=== PATIENT | female | born 1960 | race African-American/Black ===

== ENCOUNTER → 2020-02-12 11:30 | Outpatient (BNVA) | payer OTHER, SELFPAY | PROVIDERS: PCP Internal Medicine; Referring Provider Internal Medicine; Visit Provider Internal Medicine | DX: R94.31 Abnormal electrocardiogram [ECG] [EKG] (principal); E11.8 Type 2 diabetes mellitus with unspecified complications; E78.5 Hyperlipidemia, unspecified; I10 Essential (primary) hypertension; F17.200 Nicotine dependence, unspecified, uncomplicated | CPT/HCPCS: 93005; 99202 ==

== ENCOUNTER → 2020-03-02 08:32 | Outpatient (REF) | payer OTHER, SELFPAY ==
--- NOTE | 2020-03-02 08:48 | CA_ITS ---
Transthoracic Echocardiogram Patient (Last, First, Middle): Kyung Diane, Gender: Female Date of : 1960 Age: 59 Procedure Date: 03/02/2020 Procedure Type: Transthoracic Echocardiogram Location: OP Height: 165.1 cm Weight: 86.18 kg BSA: 1.94 m2 Heart Rate: bpm BP: 134 / 78 mmHg Wind Technician: Referring MD: Kj Sotomayor MD Symptoms: ABNORMAL EKG Study Quality: Good ECG Rhythm: Sinus Conclusions: - The left ventricular systolic function is normal. The visually estimated ejection fraction is between 65-70%. - No obvious valvular pathology seen on this study. - There is a small loculated pericardial effusion overlying the left ventricle. Findings Left Ventricle Normal left ventricular cavity size. There is moderately increased left ventricular wall thickness. The left ventricular systolic function is normal. The visually estimated ejection fraction is between 65-70%. There is no evidence of regional wall motion abnormalities. E/E prime ratio is between 8 and 15 consistent with indeterminate filling pressures. Evidence suggests grade I (mild) diastolic dysfunction. Right Ventricle Normal right ventricular cavity size and systolic function. Atria The left atrium is normal in size. The right atrium is normal in size. Aortic Valve There is a normal trileaflet aortic valve. There is no aortic valve stenosis. There is trace (trivial) aortic valve regurgitation. Mitral Valve The mitral valve appears normal. There is trace mitral valve regurgitation. There is no mitral valve stenosis. Pulmonic Valve The pulmonic valve was not well visualized. Tricuspid Valve Normal tricuspid valve structure. There is trace tricuspid valve regurgitation. The pulmonary artery systolic pressure is normal. Great Vessels The aortic annulus, sinuses of valsalva, asc aorta, and aortic arch are normal in size. Venous The inferior vena cava is normal in size and collapses greater than 50% with inspiration. Pericardium/Pleural There is a small loculated pericardial effusion overlying the left ventricle. There are no definitive echocardiographic findings of tamponade physiology. Prior Study Comparison Changes noted compared to prior study dated: 08/08/2006. Pericardial effusion not described then. Recommendations, Care & Conclusions No obvious valvular pathology seen on this study. Measurements 2D Linear Measurements RVIDd: 3.15 RVIDd Index: 1.62 IVSd: 1.30 0.6-0.9/0.6-1.0 cm LVIDd: 3.63 3.9-5.3/4.2-5.9 cm LVIDd Index: 1.87 2.4-3.2/2.2-3.1 cm/m2 LVIDs: 2.47 2.0-3.6 cm LVPWd: 1.66 0.7-1.1 cm Ao Root: 3.20 2.1-3.5 cm LA Diam: 3.80 2.7-3.8/3.0-4.0 cm LAIDs Index: 1.96 1.5-2.3 cm/m2 LV Mass: 247.89 67-162/88-224 g LV Mass Index: 127.78 43-95/49-115 g/m2 LVOT Diam: 2.20 3.0+(-)1.3 cm 2D Systolic Function EF 4C: 53.20 >55% EF 2C: 53.20 >55% EF BiP: 53.20 >55% Mitral Valve MV Pk E: 0.58 MV PK A: 0.65 MV Decel Time: 167.00 E/A: 0.90 E'Lateral: 4.35 E'Medial: 4.03 E/E' Med: 14.40 E/E' Lat: 13.40 Aortic Valve AoV Pk Wallace: 1.32 AoV Mn Wallace: 0.88 AoV VTI: 0.21 AoV Pk Grad: 7.00 Aov Mn Grad: 4.00 JERI Cont.VTI: 3.96 LVOT LVOT Pk Wallace: 1.11 LVOT Mn Wallace: 0.76 LVOT VTI: 0.22 LVOT Pk Grad: 5.00 LVOT Mn Grad: 3.00 LVOT Diam: 2.20 LVOT Area: 3.80 Diastolic Function MV Pk E: 0.58 MV Pk A: 0.65 E/A: 0.90 E'Medial: 4.03 E/E' Med: 14.40 E' Laterial: 4.35 E/E' Lat: 13.40 Tricuspid Valve RA Press: 3.00 Great Vessels Aorta Ao Root-2D: 3.20 2.0-3.7 cm Ao Asc: 3.30 2.1-3.4 cm Ao Arch: 3.10 Updated in Other Vendor System with Status of Final Kj Sotomayor MD electronically signed on 03/02/2020 1:22:39 PM with status of Final
--- NOTE | 2020-03-02 09:30 | CA_ITS ---
Acquisition Time: 2020-03-02 10:26:46 Total Exercise Time: 00:05:22 Test Indications: Abnormal ECG Medications: SEE CHART Protocol: JOE Max HR: 148 BPM 91% of Pred: 161 BPM Max BP: 225/060 mmHG Max Work Load: 4.0 METS Exercise stress nuclear using Joe protocol. Joe protocol modified d/t pt inability to walk the incline and the speed. Pt feels very tired, some SOB. Denies any anginal sx. Pt hypertensive toward the end of the exercise. Pt brought her medications with her and took them. BP normalized immediately after the exercise. EKG without any arrhythmias, mild upsloping ST depressions seen inferiorly and laterally. Nuclear images to follow. Test reviewed with Dr. Sotomayor. Referred By: Kj Sotomayor Overread By: Sameera Monaco
--- NOTE | 2020-03-02 09:33 | NM_ITS ---
Exercise Myocardial perfusion study Indication: Abnormal EKG to evaluate for myocardial ischemia Technique: The patient was brought in for an exercise perfusion study on 03/02/2020. Patient performed exercise as per Sj protocol and was injected 30 mCi of sestamibi was given intravenously one target HR was achieved. Images were obtained using the SPECT gamma camera interlaced with the gating device. Images were obtained in supine position. Resting perfusion study was performed on 03/03/2020. Patient was administered 30 mCi of sestamibi intravenously at rest. Images were then obtained in supine position. Images obtained with and without CT attenuation. Total DLP 97 MGY-CM. Images were processed with the software and compared side to side in short axis, horizontal long axis and vertical long axis views. Findings: The stress perfusion study showed normal uptake of radiotracer in all segments of LV myocardium on attenuated as well as non attenuated corrected images. The gated study shows normal LV systolic function with visually estimated LVEF of greater than 55%. LV cavity is normal in size. The gated study shows normal systolic wall thickening and contraction of all segments. There is no transient ischemic dilation. Resting study is suboptimal due to intense uptake interfering with inferior wall uptake. Shows diffusely reduced uptake in all segments of LV myocardium except for the lateral. Gating at rest reveals normal systolic wall motion with visually estimated ejection fraction at greater than 55%. The findings are consistent with normal myocardial perfusion. NM/NM cardiolite stress test Impression: 1. Normal myocardial perfusion 2. Gated LVEF is greater than 55%, visually. 3. Transient ischemic dilatation not present Stress EKG is borderline positive for ischemia
== END ==
LOC: HO.CARD 08:32
PROVIDERS: Visit Provider Internal Medicine
DX: R94.31 Abnormal electrocardiogram [ECG] [EKG] (principal)
CPT/HCPCS: 78452; 93017; 93306; A9500

== ENCOUNTER → 2020-03-17 12:43 | Outpatient (BNVA) | payer OTHER, SELFPAY | PROVIDERS: PCP Internal Medicine; Visit Provider Internal Medicine | DX: Z76.89 Persons encountering health services in other specified circumstances (principal) ==

== ENCOUNTER → 2020-03-25 10:22 | Outpatient (BNVA) | payer OTHER, SELFPAY | PROVIDERS: PCP Internal Medicine; Visit Provider Internal Medicine | DX: R94.31 Abnormal electrocardiogram [ECG] [EKG] (principal); R94.39 Abnormal result of other cardiovascular function study; E11.8 Type 2 diabetes mellitus with unspecified complications; F17.200 Nicotine dependence, unspecified, uncomplicated; E78.5 Hyperlipidemia, unspecified; I10 Essential (primary) hypertension | CPT/HCPCS: 99212 ==

== ENCOUNTER 2020-03-31 11:20 | Outpatient (REF) | payer OTHER, SELFPAY ==
[2020-03-31 12:09] LABS: MANUAL DIFF FLAG NO
[2020-03-31 12:15] LABS: Basophils Percent Auto 0.6 % (0-2); Eosinophils Absolute Auto 0.2 X10*3/uL (0.0-0.4); Eosinophils Percent Auto 3.3 % (0-4); Hematocrit 39.9 % (37-47); Hemoglobin 12.9 g/dl (12.0-16.0); Imm Gran Abs Auto 0.03 X10*3/uL (0.00-0.03); Imm Gran Pct Auto 0.5 % (0.0-0.4); Lymphocytes Absolute Auto 2.7 X10*3/uL (1.2-4.9); Mean Corpuscular HGB Conc 32.3 g/dl (31.0-35.0); Mean Corpuscular Volume 83.6 fL (80-98); Mean Platelet Volume 10.7 fL (9.4-12.3); Monocytes Absolute Auto 0.5 X10*3/uL (0.1-1.2); Monocytes Percent Auto 7.7 % (2-11); Neutrophils Absolute Auto 2.9 X10*3/uL (2.0-8.3); Neutrophils Percent Auto 44.9 % (45-73); Platelet Count 250 X10*3/uL (160-400); Red Blood Count 4.77 X10*6/uL (4.20-5.50); White Blood Count 6.4 X10*3/uL (4.8-10.8)
[2020-03-31 12:20] LABS: Estimated Average Glucose 212 mg/dL
[2020-03-31 12:22] LABS: Glucose Urine UA NEG (NEG); Leukocyte Esterase Urine NEG (NEG); Nitrite Urine NEG (NEG); Specific Gravity - Urine 1.025 (1.005-1.025); Urine Blood NEG (NEG); Urine Ketones NEG (NEG); Urine Protein NEG (NEG-TRACE)
[2020-03-31 12:23] LABS: Appearance Urine CLEAR; Color Urine YELLOW
[2020-03-31 12:56] LABS: Alanine Aminotransferase 105 U/L (0-31); Albumin Level 4.5 g/dL (3.5-5.0); Alkaline Phosphatase 95 U/L (39-117); Anion Gap 13 (12-20); Aspartate Amino Transferase 64 U/L (5-31); Bilirubin Total 0.4 mg/dL (0.0-1.0); Blood Urea Nitrogen 10 mg/dL (9-16); Calcium 9.9 mg/dL (8.4-10.2); Carbon Dioxide 25 mmol/L (22-29); Chloride 106 mmol/L (96-108); Cholesterol 157 mg/dL; Estimated Glomerular Filt Rate > 60; Glucose Random 137 mg/dL (60-115); HDL Cholesterol 55 mg/dL; LDL Cholesterol Calculated 75 mg/dl; Potassium 3.9 mmol/l (3.3-5.1); Sodium 140 mmol/L (135-145); Triglycerides 136 mg/dL
[2020-03-31 13:40] LABS: Thyroid Stimulating Hormone 0.67 uIU/mL (0.32-4.0)
[2020-03-31 17:25] LABS: Creatinine Urine 41.54 mg/dL; Microalbumin Urine < 5.0 mg/L
== END 2020-03-31 11:21 | disposition home or self-care (01) ==
LOC: HO.LAB 11:20
PROVIDERS: PCP Internal Medicine; Visit Provider Internal Medicine
DX: E03.8 Other specified hypothyroidism (principal); E11.9 Type 2 diabetes mellitus without complications; I10 Essential (primary) hypertension; M17.0 Bilateral primary osteoarthritis of knee; R80.8 Other proteinuria
CPT/HCPCS: 36415; 80053; 80061; 81003; 82043; 83036; 84443; 85025

== ENCOUNTER 2020-05-03 12:22 | Outpatient (REF) | payer OTHER, SELFPAY | END 2020-05-03 12:23 | disposition home or self-care (01) | LOC: HO.LAB 12:22 | PROVIDERS: Visit Provider Internal Medicine | DX: Z20.822 Contact with and (suspected) exposure to COVID-19 (principal) | CPT/HCPCS: 36415; C9803; U0003 ==

== ENCOUNTER 2020-05-10 12:18 | Outpatient (REF) | payer OTHER, SELFPAY | END 2020-05-10 12:19 | disposition home or self-care (01) | LOC: HO.LAB 12:18 | PROVIDERS: Visit Provider Internal Medicine | DX: Z20.822 Contact with and (suspected) exposure to COVID-19 (principal) | CPT/HCPCS: 36415; C9803; U0003; U0005 ==

== ENCOUNTER 2020-07-09 09:25 | Outpatient (REF) | payer OTHER, SELFPAY ==
[2020-07-09 11:11] LABS: Alanine Aminotransferase 128 U/L (0-31); Albumin Level 4.3 g/dL (3.5-5.0); Alkaline Phosphatase 168 U/L (39-117); Anion Gap 14 (12-20); Aspartate Amino Transferase 73 U/L (5-31); Bilirubin Total < 0.2 mg/dL (0.0-1.0); Blood Urea Nitrogen 13 mg/dL (9-16); Calcium 9.4 mg/dL (8.4-10.2); Carbon Dioxide 25 mmol/L (22-29); Chloride 105 mmol/L (96-108); Estimated Glomerular Filt Rate > 60; Glucose Random 188 mg/dL (60-115); Potassium 3.9 mmol/L (3.3-5.1); Sodium 140 mmol/L (135-145); Total Protein 7.7 g/dL (6.5-8.0)
[2020-07-09 11:19] LABS: Estimated Average Glucose 212 mg/dL
== END 2020-07-09 09:26 | disposition home or self-care (01) ==
LOC: HO.LAB 09:25
PROVIDERS: PCP Internal Medicine; Visit Provider Internal Medicine
DX: E03.8 Other specified hypothyroidism (principal); E11.65 Type 2 diabetes mellitus with hyperglycemia; E78.00 Pure hypercholesterolemia, unspecified; I10 Essential (primary) hypertension; R80.8 Other proteinuria
CPT/HCPCS: 36415; 80053; 83036

== ENCOUNTER 2020-09-07 12:16 | Outpatient (REF) | payer OTHER, SELFPAY ==
[2020-09-07 13:49] LABS: Estimated Average Glucose 252 mg/dL; Hemoglobin A1c % 10.4 %
[2020-09-07 13:57] LABS: Alanine Aminotransferase 148 U/L (0-31); Albumin Level 4.4 g/dL (3.5-5.0); Alkaline Phosphatase 172 U/L (39-117); Anion Gap 14 (12-20); Aspartate Amino Transferase 79 U/L (5-31); Bilirubin Total 0.4 mg/dL (0.0-1.0); Blood Urea Nitrogen 12 mg/dL (9-16); Calcium 10.4 mg/dL (8.4-10.2); Carbon Dioxide 24 mmol/L (22-29); Chloride 104 mmol/L (96-108); Estimated Glomerular Filt Rate > 60; Glucose Random 205 mg/dL (60-115); Potassium 4.1 mmol/L (3.3-5.1); Sodium 138 mmol/L (135-145); Total Protein 7.6 g/dL (6.5-8.0)
[2020-09-07 14:18] LABS: Ferritin 97 ng/mL (10-250)
[2020-09-08 12:52] LABS: Anti Nuclear Antibody Screen NEGATIVE (NEGATIVE)
[2020-09-13 12:31] LABS: Smooth Muscle Antibody <20 U (<20)
== END 2020-09-07 12:17 | disposition home or self-care (01) ==
LOC: HO.LAB 12:16
PROVIDERS: PCP Internal Medicine; Visit Provider Internal Medicine
DX: E03.9 Hypothyroidism, unspecified (principal); E11.9 Type 2 diabetes mellitus without complications; I10 Essential (primary) hypertension; R74.01 Elevation of levels of liver transaminase levels; Z72.0 Tobacco use
CPT/HCPCS: 36415; 80053; 82728; 83036; 86038; 86039; 86255

== ENCOUNTER 2020-10-12 09:44 | Outpatient (REF) | payer OTHER, SELFPAY ==
--- NOTE | ~2020-10-12 | MM_ITS ---
EXAMINATION: MM SCREENING DIGITAL BREAST TOMOSYNTHESIS, BILATERAL CLINICAL INFORMATION: Screening. Asymptomatic. The lifetime risk of breast cancer based on the Tyrer-Cuzick Model is 6.0%. COMPARISON: Mammography: 05/23/2019 and studies dating back to 04/28/2011. TECHNIQUE: Digital breast tomosynthesis is performed in both the craniocaudal and mediolateral oblique views along with computer-aided detection (CAD). Synthesized 2D images are generated from the tomosynthesis. FINDINGS: There are scattered areas of fibroglandular density (ACR BI-RADS breast composition Category b). There is a stable parenchymal pattern of the left breast with grouping of skin calcifications about the inferior medial aspect. Within the right breast, the grouping of calcifications seen deep lateral aspect appear to have increased in number by a few and spot magnification views in craniocaudal and 90-degree mediolateral views is recommended. MM/MM tomosynthesis screening BI IMPRESSION: Question increasing grouping of calcifications right breast deep lateral. ASSESSMENT: BI-RADS 0: Incomplete - Need Additional Imaging Evaluation RECOMMENDATION: Spot magnification views of the right breast in craniocaudal and 90-degree mediolateral views. Radiology staff will contact patient to obtain additional study imaging. This patient's information was entered into a reminder system with a target due date for their next mammogram.
== END 2020-10-12 09:45 | disposition home or self-care (01) ==
LOC: HO.MAMMO 09:44
PROVIDERS: PCP Internal Medicine; Visit Provider Internal Medicine
DX: Z12.31 Encounter for screening mammogram for malignant neoplasm of breast (principal)
CPT/HCPCS: 77063; 77067

== ENCOUNTER 2020-10-26 12:10 | Outpatient (REF) | payer OTHER, SELFPAY ==
--- NOTE | ~2020-10-26 | MM_ITS ---
EXAMINATION: MM DIAGNOSTIC DIGITAL MAMMOGRAPHY, RIGHT CLINICAL INFORMATION: Recall from screening for calcifications central posterior 9:00 right breast. COMPARISON: Mammography: 10/12/2020, 05/23/2019, 05/17/2018 TECHNIQUE: Digital mammography is performed in the following views: Magnification right CC x3, magnification right ML x2. FINDINGS: There are scattered areas of fibroglandular density (ACR BI-RADS breast composition Category b). There are tightly grouped similar appearing coarse calcifications at the central posterior 9:00 position. They are increased in number from prior studies. The appearance is most suggestive of fibroadenomatous change/degenerating fibroadenoma. Calcifications are probably benign and short interval follow-up is recommended in 6 months. Results are discussed with the patient at time of visit. 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 ASSESSMENT: BI-RADS 3: Probably Benign RECOMMENDATION: Diagnostic right mammography in 6 months. This patient's information was entered into a reminder system with a target due date for their next mammogram.
== END 2020-10-26 12:11 | disposition home or self-care (01) ==
LOC: HO.MAMMO 12:10
PROVIDERS: Visit Provider Internal Medicine
DX: R92.1 Mammographic calcification found on diagnostic imaging of breast (principal)
CPT/HCPCS: 77065

== ENCOUNTER 2020-12-28 12:37 | Outpatient (REF) | payer OTHER, SELFPAY ==
[2020-12-28 13:30] LABS: Estimated Average Glucose 260 mg/dL; Hemoglobin A1c % 10.7 %
[2020-12-28 13:38] LABS: Creatinine Urine 100.33 mg/dL; Microalbum/Creatinine Ratio Ur 120.6 ug/mg cr
[2020-12-28 13:43] LABS: Alanine Aminotransferase 139 U/L (0-31); Albumin Level 4.4 g/dL (3.5-5.0); Alkaline Phosphatase 165 U/L (39-117); Anion Gap 15 (12-20); Aspartate Amino Transferase 80 U/L (5-31); Bilirubin Total 0.2 mg/dL (0.0-1.0); Blood Urea Nitrogen 7 mg/dL (9-16); Calcium 9.9 mg/dL (8.4-10.2); Carbon Dioxide 23 mmol/L (22-29); Chloride 105 mmol/L (96-108); Cholesterol 126 mg/dL; Estimated Glomerular Filt Rate > 60; Glucose Random 181 mg/dL (60-115); HDL Cholesterol 46 mg/dL; LDL Cholesterol Calculated 58 mg/dl; Potassium 4.1 mmol/L (3.3-5.1); Sodium 139 mmol/L (135-145); Total Protein 7.7 g/dL (6.5-8.0); Triglycerides 113 mg/dL
[2020-12-28 13:58] LABS: Thyroid Stimulating Hormone 1.79 uIU/mL (0.32-4.0)
== END 2020-12-28 12:38 | disposition home or self-care (01) ==
LOC: HO.LAB 12:37
PROVIDERS: PCP Internal Medicine; Visit Provider Internal Medicine
DX: E11.65 Type 2 diabetes mellitus with hyperglycemia (principal); I10 Essential (primary) hypertension; Z72.0 Tobacco use
CPT/HCPCS: 36415; 80053; 80061; 82043; 83036; 84443

== ENCOUNTER → 2021-03-15 10:39 | Outpatient (BNVA) | payer OTHER, SELFPAY | PROVIDERS: PCP Internal Medicine; Visit Provider Internal Medicine | DX: R94.31 Abnormal electrocardiogram [ECG] [EKG] (principal); R94.39 Abnormal result of other cardiovascular function study; E78.5 Hyperlipidemia, unspecified; E11.8 Type 2 diabetes mellitus with unspecified complications; F17.200 Nicotine dependence, unspecified, uncomplicated; I10 Essential (primary) hypertension | CPT/HCPCS: 93005; 99212 ==

== ENCOUNTER 2021-03-25 11:46 | Outpatient (REF) | payer OTHER, SELFPAY ==
[2021-03-25 12:42] LABS: Alanine Aminotransferase 166 U/L (0-31); Albumin Level 4.3 g/dL (3.5-5.0); Alkaline Phosphatase 155 U/L (39-117); Anion Gap 14 (12-20); Aspartate Amino Transferase 107 U/L (5-31); Bilirubin Total 0.4 mg/dL (0.0-1.0); Blood Urea Nitrogen 9 mg/dL (9-16); Calcium 10.3 mg/dL (8.4-10.2); Carbon Dioxide 24 mmol/L (22-29); Chloride 106 mmol/L (96-108); Estimated Glomerular Filt Rate > 60; Glucose Random 151 mg/dL (60-115); Potassium 3.8 mmol/L (3.3-5.1); Sodium 140 mmol/L (135-145)
[2021-03-25 13:04] LABS: Thyroid Stimulating Hormone 2.03 uIU/mL (0.32-4.0)
[2021-03-25 13:05] LABS: Estimated Average Glucose 235 mg/dL; Hemoglobin A1c % 9.8 %
== END 2021-03-25 11:47 | disposition home or self-care (01) ==
LOC: HO.LAB 11:46
PROVIDERS: PCP Internal Medicine; Visit Provider Internal Medicine
DX: Z00.00 Encounter for general adult medical examination without abnormal findings (principal); E03.9 Hypothyroidism, unspecified; E78.00 Pure hypercholesterolemia, unspecified; I10 Essential (primary) hypertension; L30.4 Erythema intertrigo; Z72.0 Tobacco use
CPT/HCPCS: 36415; 80053; 83036; 84443

== ENCOUNTER 2021-04-19 15:18 | Outpatient (REF) | payer OTHER, SELFPAY ==
[2021-04-19 16:13] LABS: Binax Internal Control QC Valid; Binax Now Covid-19 Ag Negative (Negative)
== END 2021-04-19 15:19 | disposition home or self-care (01) ==
LOC: HO.LAB 15:18
PROVIDERS: Visit Provider Internal Medicine
DX: Z20.822 Contact with and (suspected) exposure to COVID-19 (principal)
CPT/HCPCS: C9803

== ENCOUNTER 2021-04-28 09:54 | Outpatient (REF) | payer OTHER, SELFPAY ==
--- NOTE | ~2021-04-28 | US_ITS ---
EXAMINATION: US ABDOMEN COMPLETE CLINICAL INFORMATION: Elevated LFTs. COMPARISON: None TECHNIQUE: Real-time imaging of the abdominal viscera. FINDINGS: PANCREAS: The pancreas is atrophic and barely visible.. ABDOMINAL AORTA: The proximal, mid, and distal segments are normal in caliber. INFERIOR VENA CAVA: Visualized portions are normal. LIVER: The liver is normal in size. The liver contour is normal. The liver is diffusely heterogenous. No focal hepatic lesion. There is no intrahepatic biliary duct dilatation seen. GALLBLADDER: Nonmobile echogenic area along the anterior gallbladder wall likely adenomyomatosis. The gallbladder is physiologically distended. Multiple mobile gallstones and echogenic gravel are present. No evidence of gallbladder wall thickening or pericholecystic fluid. COMMON BILE DUCT: Normal in caliber measuring 0.3 cm in diameter. RIGHT KIDNEY: Normal. No hydronephrosis. No renal calculi or focal parenchymal lesions. The kidney measures 12.8 cm in maximum dimension. LEFT KIDNEY: No hydronephrosis or renal calculi. The kidney measures 11.7 cm in maximum dimension. There is anechoic cyst upper/mid pole measuring 0.5 x 0.5 x 0.5 cm SPLEEN: The spleen measures 9.5 cm in maximum dimension. The spleen has slightly lobulated appearance FREE FLUID: None. US/US abdomen complete IMPRESSION: Atrophic pancreas barely visible. Gallstones and gravel without wall thickness. There is a nonmobile echogenic area in the anterior fundal wall question adenomyomatosis. Slightly lobulated spleen.
== END 2021-04-28 09:55 | disposition home or self-care (01) ==
LOC: HO.US 09:54
PROVIDERS: Visit Provider Internal Medicine
DX: R94.5 Abnormal results of liver function studies (principal)
CPT/HCPCS: 76700

== ENCOUNTER 2021-05-18 14:12 | Outpatient (REF) | payer OTHER, SELFPAY ==
--- NOTE | ~2021-05-18 | MM_ITS ---
EXAMINATION: MM DIAGNOSTIC DIGITAL BREAST TOMOSYNTHESIS, RIGHT CLINICAL INFORMATION: Short interval six-month follow-up probable benign calcifications posterior central 9:00 right breast. The lifetime risk of breast cancer based on the Tyrer-Cuzick Model is 5%. COMPARISON: Mammography: 10/26/2020, 10/12/2020 (BI-RADS 0) 05/23/2019, 05/17/2018 TECHNIQUE: Digital breast tomosynthesis is performed in both the craniocaudal and mediolateral oblique views along with computer-aided detection (CAD). Synthesized 2D images are generated from the tomosynthesis. Additional magnification right CC and magnification right ML views are obtained. FINDINGS: There are scattered areas of fibroglandular density (ACR BI-RADS breast composition Category b). Parenchymal pattern is similar to prior studies and there is no developing density or interval mass or architectural abnormality. Calcifications for follow-up right breast central posterior 9:00 position are tightly grouped and arrange in a pattern suggesting probable degenerating fibroadenoma. There may be a few adjacent satellite faint similar appearing calcifications just inferior medial on mag views. Calcifications will be reassessed again in 6 months at time of annual bilateral mammography. Results are provided to the patient at time of visit by the technologist. MM/MM tomosynthesis diagnostic RT IMPRESSION: No significant changes from prior diagnostic exam. ASSESSMENT: BI-RADS 3: Probably Benign RECOMMENDATION: Diagnostic mammography at time of annual bilateral mammography, due in 6 months. This patient's information was entered into a reminder system with a target due date for their next mammogram.
== END 2021-05-18 14:13 | disposition home or self-care (01) ==
LOC: HO.MAMMO 14:12
PROVIDERS: Visit Provider Internal Medicine
DX: R92.1 Mammographic calcification found on diagnostic imaging of breast (principal)
CPT/HCPCS: 77061; 77065

== ENCOUNTER 2021-07-01 10:32 | Outpatient (REF) | payer OTHER, SELFPAY ==
[2021-07-01 11:40] LABS: Estimated Average Glucose 258 mg/dL; Hemoglobin A1c % 10.6 %
[2021-07-01 12:07] LABS: Ferritin 162 ng/mL (10-250); Thyroid Stimulating Hormone 1.57 uIU/mL (0.32-4.0)
[2021-07-01 12:14] LABS: Alanine Aminotransferase 103 U/L (0-31); Albumin Level 4.5 g/dL (3.5-5.0); Alkaline Phosphatase 82 U/L (39-117); Anion Gap 13 (12-20); Aspartate Amino Transferase 82 U/L (5-31); Bilirubin Total 0.5 mg/dL (0.0-1.0); Blood Urea Nitrogen 11 mg/dL (9-16); Carbon Dioxide 24 mmol/L (22-29); Chloride 106 mmol/L (96-108); Cholesterol 128 mg/dL; Estimated Glomerular Filt Rate > 60; Glucose Random 155 mg/dL (60-115); HDL Cholesterol 46 mg/dL; Iron 85 mcg/dL (30-160); LDL Cholesterol Calculated 59 mg/dl; Percent Iron Saturation 20 % (15-50); Potassium 3.7 mmol/L (3.3-5.1); Sodium 139 mmol/L (135-145); Total Iron Binding Capacity 427 mcg/dL (228-428); Triglycerides 116 mg/dL; Unsaturated Iron Binding 342 ug/dL
[2021-07-04 04:14] LABS: HBS Num1 71.13 mIU/mL (0-7.99); HBc Num1 0.06 S/CO (0.00-0.79); HBsAGNum1 0.19 S/CO (0.00-0.99); Hepatitis B Core Antibody Nonreactive (Nonreactive); Hepatitis B Surface Antigen Negative (Negative); ~Hepatitis B Surface Antibody REACTIVE (Nonreactive)
[2021-07-04 04:23] LABS: ~HepC Num1 0.22 S/CO (0.00-0.79); ~Hepatitis C Antibody Nonreactive (Nonreactive)
[2021-07-04 14:52] LABS: Anti Nuclear Antibody Screen NEGATIVE (NEGATIVE)
[2021-07-06 05:14] LABS: Hepatitis A Antibody IgM 0.18 Index (0-0.79); ~Hepatitis A Antibody IgM Nonreactive (Nonreactive)
[2021-07-06 14:42] LABS: Smooth Muscle Antibody <20 U (<20)
== END 2021-07-01 10:33 | disposition home or self-care (01) ==
LOC: HO.LAB 10:32
PROVIDERS: PCP Internal Medicine; Visit Provider Internal Medicine
DX: E11.65 Type 2 diabetes mellitus with hyperglycemia (principal); E03.9 Hypothyroidism, unspecified; E78.00 Pure hypercholesterolemia, unspecified; R74.01 Elevation of levels of liver transaminase levels
CPT/HCPCS: 36415; 80053; 80061; 82728; 83036; 83540; 84443; 86015; 86038; 86039; 86704; 86706; 86709; 86803; 87340

== ENCOUNTER 2021-09-23 11:27 | Outpatient (REF) | payer OTHER, SELFPAY ==
[2021-09-23 12:27] LABS: Estimated Average Glucose 192 mg/dL; Hemoglobin A1c % 8.3 %
[2021-09-23 12:51] LABS: Alanine Aminotransferase 70 U/L (0-31); Albumin Level 4.6 g/dL (3.5-5.0); Alkaline Phosphatase 85 U/L (39-117); Anion Gap 13 (12-20); Aspartate Amino Transferase 46 U/L (5-31); Bilirubin Total 0.3 mg/dL (0.0-1.0); Blood Urea Nitrogen 14 mg/dL (9-16); Calcium 10.3 mg/dL (8.4-10.2); Carbon Dioxide 23 mmol/L (22-29); Chloride 107 mmol/L (96-108); Estimated Glomerular Filt Rate 54; Glucose Random 87 mg/dL (60-115); Potassium 3.9 mmol/L (3.3-5.1); Sodium 139 mmol/L (135-145); Total Protein 8.2 g/dL (6.5-8.0)
== END 2021-09-23 11:28 | disposition home or self-care (01) ==
LOC: HO.LAB 11:27
PROVIDERS: PCP Internal Medicine; Visit Provider Internal Medicine
DX: E03.8 Other specified hypothyroidism (principal); E11.65 Type 2 diabetes mellitus with hyperglycemia; R74.01 Elevation of levels of liver transaminase levels; Z72.0 Tobacco use
CPT/HCPCS: 36415; 80053; 83036

== ENCOUNTER 2021-11-16 11:57 | Outpatient (REF) | payer OTHER, SELFPAY ==
--- NOTE | ~2021-11-16 | MM_ITS ---
EXAMINATION: MM DIAGNOSTIC DIGITAL BREAST TOMOSYNTHESIS, BILATERAL CLINICAL INFORMATION: Due for yearly. Also follow-up probable benign tightly grouped relatively coarse calcifications posterior central 9:00 right breast. The lifetime risk of breast cancer based on the Tyrer-Cuzick Model is 5%. COMPARISON: Mammography: 05/18/2021, 10/26/2020, 10/12/2020 (BI-RADS 0), 05/23/2019, 05/17/2018 TECHNIQUE: Digital breast tomosynthesis is performed in both the craniocaudal and mediolateral oblique views along with computer-aided detection (CAD). Synthesized 2D images are generated from the tomosynthesis. Additional views are obtained: Exaggerated right CC, magnification right CC x4, magnification right ML x3. FINDINGS: There are scattered areas of fibroglandular density (ACR BI-RADS breast composition Category b). The parenchymal pattern is similar to prior studies and there is no interval mass or architectural abnormality or developing density. The axilla and skin contours are unremarkable. Left breast has grouped benign dermal calcifications posterior 7:30 position similar to prior studies. Right breast calcifications for follow-up posterior central 9:00 position are stable from prior diagnostic exam. The calcifications are tightly grouped and relatively coarse and likely fibroadenomatous change. There are a few adjacent satellite calcifications which show no suspicious change from prior study. These remain probably benign. There are loosely grouped calcifications posterior upper inner right breast. Additional magnification views show the calcifications are over 10 in number and vary in size and attenuation. The calcifications are not as well imaged on the CC view, although are confirmed on standard CC tomography sections. This represents change from prior study. Results are discussed with the patient. The calcifications for follow-up posterior central 9:00 position are probably benign and may continue to be followed. Stereotactic sampling for the loosely grouped calcifications posterior upper inner right breast was discussed. Patient is in agreement with tissue sampling. MM/MM tomosynthesis diagnostic BI IMPRESSION: Right: -New loosely grouped calcifications posterior upper inner quadrant. -The probable benign calcifications for follow-up surveillance are without significant change. Left: -No mammographic evidence of malignancy. ASSESSMENT: BI-RADS 4: Suspicious (subcategory 4A: Low suspicion for malignancy) RECOMMENDATION: Stereotactic sampling calcifications posterior upper inner right breast. This patient's information was entered into a reminder system with a target due date for their next mammogram.
== END 2021-11-16 11:58 | disposition home or self-care (01) ==
LOC: HO.MAMMO 11:57
PROVIDERS: PCP Internal Medicine; Visit Provider Internal Medicine
DX: R92.1 Mammographic calcification found on diagnostic imaging of breast (principal)
CPT/HCPCS: 77062; 77066

== ENCOUNTER 2021-11-22 09:04 | Outpatient (REF) | payer OTHER, SELFPAY ==
--- NOTE | ~2021-11-22 | MM_ITS ---
EXAMINATION: STEREOTACTIC TOMOSYNTHESIS-GUIDED VACUUM-ASSISTED BREAST BIOPSY, RIGHT SPECIMEN RADIOGRAPH, RIGHT POST PROCEDURE DIGITAL MAMMOGRAM, RIGHT CLINICAL INFORMATION: Loosely grouped calcifications posterior upper inner right breast representing change from prior studies. Other calcifications under surveillance benign appearing and stable.. COMPARISON: Mammography 11/16/2021, 05/18/2021. TECHNIQUE/PROCEDURE: Informed consent was obtained from the patient after discussion of the benefits, risks, and alternatives to biopsy today. Patient appeared to understand. Gave opportunity for questions. Patient signed consent form. BIOPSY TABLE: [employer] Affirm Prone Biopsy System. LESION: Loosely grouped calcifications posterior upper inner right breast. LOCAL ANESTHESIA: 10 mL carbonated 1% lidocaine; 10 mL 1% lidocaine with epinephrine. DERMATOTOMY: Single skin joshua dermatotomy performed. NEEDLE: [employer] 9-gauge vacuum assisted core biopsy device. APPROACH: Medial lateral. TARGETING: Combination of digital breast tomosynthesis and stereotactic digital mammography used for targeting. CORES: 7. CLIP: [employer] Cylinder-shaped marker. SPECIMEN RADIOGRAPH: Specimen radiograph is taken in separate room using digital mammography. The index calcifications are in the excised cores. There are at least 10 calcifications in the cores. POST PROCEDURE UNILATERAL DIGITAL MAMMOGRAM: The post biopsy mammogram is performed in separate room using separate digital mammography equipment from the biopsy procedure. CC and LM views are obtained. There are scattered areas of fibroglandular density (breast composition category: b). The clip marker is in position. The calcifications are markedly decreased at the biopsy site. No gross hematoma. The patient tolerated the procedure well. No immediate complications. Home instructions reviewed with the patient. Final pathology results are pending. MM/MM stereotactic biopsy RT IMPRESSION: 1. Digital tomosynthesis-guided core biopsy right breast with clip placement. 2. Specimen radiograph taken and post procedure mammogram. There is satisfactory positioning of the biopsy clip. 3. Final pathology results pending. An addendum report will be issued.
[2021-11-22] MEDS: Lidocaine HCl 1 % 20 ML VIAL 9 ML SUBCUT (11:10)
[2021-11-22] MEDS: Sodium Bicarbonate 8.4% 50 MEQ/50 ML VIAL SUBCUT (11:13)
== END 2021-11-22 09:05 | disposition home or self-care (01) ==
LOC: HO.MAMMO 09:04
PROVIDERS: PCP Internal Medicine; Visit Provider Surgery
DX: R92.8 Other abnormal and inconclusive findings on diagnostic imaging of breast (principal)
CPT/HCPCS: 19081; 88305; 99202

== ENCOUNTER → 2021-11-25 08:57 | Outpatient (BNVA) | payer OTHER, SELFPAY | PROVIDERS: Visit Provider Surgery | DX: R92.0 Mammographic microcalcification found on diagnostic imaging of breast (principal); Z71.2 Person consulting for explanation of examination or test findings; Z79.899 Other long term (current) drug therapy | CPT/HCPCS: 99212 ==

== ENCOUNTER 2021-12-21 11:07 | Outpatient (REF) | payer OTHER, SELFPAY ==
[2021-12-21 11:25] LABS: MANUAL DIFF FLAG NO
[2021-12-21 11:58] LABS: Basophils Percent Auto 0.5 % (0-2); Eosinophils Absolute Auto 0.2 X10*3/uL (0.0-0.4); Eosinophils Percent Auto 2.8 % (0-4); Hematocrit 45.4 % (37.0-47.0); Hemoglobin 14.4 g/dl (12.0-16.0); Imm Gran Abs Auto 0.03 X10*3/uL (0.00-0.03); Imm Gran Pct Auto 0.4 % (0.0-0.4); Lymphocytes Absolute Auto 3.1 X10*3/uL (1.2-4.9); Lymphocytes Percent Auto 39.6 % (20-40); Mean Corpuscular HGB Conc 31.7 g/dl (31.0-35.0); Mean Corpuscular Hemoglobin 26.4 pg (27.0-33.0); Mean Corpuscular Volume 83.2 fL (80.0-98.0); Mean Platelet Volume 10.4 fL (9.4-12.3); Monocytes Absolute Auto 0.5 X10*3/uL (0.1-1.2); Monocytes Percent Auto 6.7 % (2-11); Neutrophils Absolute Auto 3.9 x10*3/uL (2.0-8.3); Platelet Count 254 X10*3/uL (160-400); Red Blood Count 5.46 X10*6/uL (4.20-5.50); Red Cell Distribution Width 15.1 % (11.0-16.0); White Blood Count 7.9 X10*3/uL (4.8-10.8)
[2021-12-21 12:03] LABS: Estimated Average Glucose 169 mg/dL; Hemoglobin A1c % 7.5 %
[2021-12-21 12:29] LABS: Alanine Aminotransferase 101 U/L (0-31); Albumin Level 4.4 g/dL (3.5-5.0); Alkaline Phosphatase 153 U/L (39-117); Anion Gap 15 (12-20); Aspartate Amino Transferase 59 U/L (5-31); Bilirubin Total 0.4 mg/dL (0.0-1.0); Blood Urea Nitrogen 12 mg/dL (9-16); Calcium 10.4 mg/dL (8.4-10.2); Carbon Dioxide 25 mmol/L (22-29); Chloride 105 mmol/L (96-108); Cholesterol 139 mg/dL; Estimated Glomerular Filt Rate > 60; Glucose Random 91 mg/dL (60-115); HDL Cholesterol 45 mg/dL; LDL Cholesterol Calculated 65 mg/dl; Potassium 4.1 mmol/L (3.3-5.1); Sodium 141 mmol/L (135-145); Total Protein 7.9 g/dL (6.5-8.0); Triglycerides 148 mg/dL
[2021-12-21 12:46] LABS: Thyroid Stimulating Hormone 1.24 uIU/mL (0.32-4.0)
[2021-12-21 12:46] LABS: Creatinine Urine 105.91 mg/dL; Microalbum/Creatinine Ratio Ur 37.7 ug/mg cr
[2021-12-21 12:54] LABS: Vitamin B12 325 pg/mL (200-900)
== END 2021-12-21 11:08 | disposition home or self-care (01) ==
LOC: HO.LAB 11:07
PROVIDERS: PCP Internal Medicine; Visit Provider Internal Medicine
DX: E03.8 Other specified hypothyroidism (principal); E11.65 Type 2 diabetes mellitus with hyperglycemia; R80.8 Other proteinuria; M22.2X2 Patellofemoral disorders, left knee
CPT/HCPCS: 36415; 80053; 80061; 82043; 82607; 83036; 84443; 85025

== ENCOUNTER 2022-02-06 09:01 | Outpatient (REF) | payer OTHER, SELFPAY ==
[2022-02-06 09:47] LABS: Estimated Average Glucose 174 mg/dL; Hemoglobin A1c % 7.7 %
[2022-02-06 10:07] LABS: Cholesterol 143 mg/dL; HDL Cholesterol 44 mg/dL; LDL Cholesterol Calculated 50 mg/dl; Triglycerides 247 mg/dL
== END 2022-02-06 09:02 | disposition home or self-care (01) ==
LOC: HO.LAB 09:01
PROVIDERS: PCP Internal Medicine; Visit Provider Registered Nurse
DX: Z51.81 Encounter for therapeutic drug level monitoring (principal)
CPT/HCPCS: 36415; 80061; 83036

== ENCOUNTER → 2022-03-09 11:04 | Outpatient (BNVA) | payer OTHER, SELFPAY | PROVIDERS: PCP Internal Medicine; Referring Provider Internal Medicine; Visit Provider Internal Medicine | DX: R94.31 Abnormal electrocardiogram [ECG] [EKG] (principal); R94.39 Abnormal result of other cardiovascular function study; E11.8 Type 2 diabetes mellitus with unspecified complications; E78.5 Hyperlipidemia, unspecified; I10 Essential (primary) hypertension; F17.210 Nicotine dependence, cigarettes, uncomplicated | CPT/HCPCS: 93005; 99212 ==

== ENCOUNTER 2022-04-13 08:56 | Outpatient (REF) | payer OTHER, SELFPAY ==
[2022-04-13 10:24] LABS: Estimated Average Glucose 157 mg/dL; Hemoglobin A1c % 7.1 %
[2022-04-13 10:43] LABS: Alanine Aminotransferase 105 U/L (0-31); Albumin Level 4.5 g/dL (3.5-5.0); Alkaline Phosphatase 162 U/L (39-117); Anion Gap 15 (12-20); Aspartate Amino Transferase 70 U/L (5-31); Bilirubin Total 0.4 mg/dL (0.0-1.0); Blood Urea Nitrogen 11 mg/dL (9-16); Calcium 10.3 mg/dL (8.4-10.2); Carbon Dioxide 24 mmol/L (22-29); Chloride 107 mmol/L (96-108); Estimated Glomerular Filt Rate > 60; Glucose Random 69 mg/dL (60-115); Sodium 142 mmol/L (135-145); Total Protein 8.1 g/dL (6.5-8.0)
== END 2022-04-13 08:57 | disposition home or self-care (01) ==
LOC: HO.LAB 08:56
PROVIDERS: PCP Internal Medicine; Visit Provider Internal Medicine
DX: Z00.00 Encounter for general adult medical examination without abnormal findings (principal); E03.8 Other specified hypothyroidism; E11.65 Type 2 diabetes mellitus with hyperglycemia; R80.8 Other proteinuria; Z72.0 Tobacco use
CPT/HCPCS: 36415; 80053; 83036

== ENCOUNTER 2022-05-15 09:53 | Outpatient (REF) | payer OTHER, SELFPAY ==
[2022-05-15 11:15] LABS: Anion Gap 13 (12-20); Blood Urea Nitrogen 13 mg/dL (9-16); Calcium 9.8 mg/dL (8.4-10.2); Carbon Dioxide 24 mmol/L (22-29); Chloride 108 mmol/L (96-108); Estimated Glomerular Filt Rate > 60; Glucose Random 82 mg/dL (60-115); Potassium 3.9 mmol/L (3.3-5.1); Sodium 141 mmol/L (135-145)
== END 2022-05-15 09:54 | disposition home or self-care (01) ==
LOC: HO.LAB 09:53
PROVIDERS: PCP Internal Medicine; Visit Provider Internal Medicine
DX: I10 Essential (primary) hypertension (principal); R94.39 Abnormal result of other cardiovascular function study; E11.8 Type 2 diabetes mellitus with unspecified complications
CPT/HCPCS: 36415; 80048

== ENCOUNTER 2022-05-19 09:56 | Outpatient (REF) | payer OTHER, SELFPAY ==
--- NOTE | ~2022-05-19 | US_ITS ---
EXAMINATION: US COMPLETE ABDOMEN WITH LIVER ELASTOGRAPHY CLINICAL INFORMATION: Abnormal liver function tests COMPARISON: Previous abdominal ultrasound April 2021 TECHNIQUE: Real-time imaging of the abdominal viscera. Noninvasive ultrasound liver fibrosis assessment is performed using [employer] point quantification shear wave elastography (2D-SWE) with a C5-2 MHz transducer. Multiple elastography samples are obtained. FINDINGS: PANCREAS: The visualized pancreatic head and body are normal in appearance. The remainder of the pancreas is obscured from visualization by the overlying bowel gas. ABDOMINAL AORTA: The proximal abdominal aorta is normal in caliber. The mid and distal abdominal aorta is not well visualized due to bowel gas. INFERIOR VENA CAVA: Visualized portions are normal. LIVER: Liver echotexture is increased. The liver is normal in contour. No focal liver lesion. No biliary duct dilatation. The right lobe measures 16 cm in length. The left lobe measures 15 cm in length. Portal flow is normal/hepatopedal Shear wave liver elastography median stiffness is 1.8 m/s (reference: normal median stiffness is 1.3 m/s or less). IQR/median stiffness to assess sampling precision is 0.07 (reference: good quality data set is IQR/median stiffness of 0.15 or less). GALLBLADDER: There is adenomyomatosis of gallbladder wall. No gallstones. The gallbladder is normal in size. COMMON BILE DUCT: Normal in caliber measuring 0.5 cm in diameter. RIGHT KIDNEY: Normal. No hydronephrosis. No renal calculi or focal parenchymal lesions. The kidney measures 13 cm in maximum dimension. LEFT KIDNEY: Simple cyst in the midpole measuring 5 mm. No hydronephrosis. No renal calculi . The kidney measures 11.3 cm in maximum dimension. SPLEEN: Normal. The spleen measures 9.3 cm in maximum dimension. FREE FLUID: None. US/US abdomen comp w elastography IMPRESSION: 1. Impression: Echogenic liver probably representing fatty infiltration. Adenomyomatosis of the gallbladder wall. Small right renal cyst. Limited visualization of the pancreas and aorta. 2. Liver elastography: Slightly elevated liver stiffness. Adequate liver sampling. REFERENCE: Society of Radiologists in Ultrasound Liver Stiffness Thresholds (2020): LIVER STIFFNESS THRESHOLDS: *Liver Stiffness equal or less than 1.3 m/s: High probability of being normal. *Liver Stiffness less than 1.7 m/s: In the absence of other known clinical signs, rules out compensated advanced chronic liver disease. *Liver Stiffness 1.7-2.1 m/s: Suggestive of compensated advanced chronic liver disease but need further test for confirmation. *Liver Stiffness over 2.1 m/s: Rules in compensated advanced chronic liver disease. *Liver Stiffness over 2.4 m/s: Suggestive of clinically significant portal hypertension. QUALITY OF DATA SET: *IQR/Median value equal or less than 0.15 implies a quality data set. *IQR/Median value over 0.15 implies a poor quality data set. SIGNIFICANT CHANGE FROM PRIOR EXAM: Significant change if liver stiffness measurement is 10% or greater from prior exam. OTHER CONSIDERATIONS: The stage of liver fibrosis may be overestimated in the setting of acute hepatitis, liver inflammation, elevated liver function tests, hepatic vascular congestion, obstructive cholestasis, non-fasting state, and infiltrative diseases such as amyloidosis and lymphoma. In some patients with NAFLD, the liver stiffness thresholds for compensated advanced chronic liver disease may be lower. In causes other than viral hepatitis and NAFLD, liver stiffness thresholds are not well established.
== END 2022-05-19 09:57 | disposition home or self-care (01) ==
LOC: HO.US 09:56
PROVIDERS: PCP Internal Medicine; Visit Provider Internal Medicine
DX: R74.01 Elevation of levels of liver transaminase levels (principal)
CPT/HCPCS: 76705; 76981

== ENCOUNTER → 2022-06-07 09:58 | Outpatient (BNVA) | payer OTHER, SELFPAY | PROVIDERS: PCP Internal Medicine; Referring Provider Internal Medicine; Visit Provider Internal Medicine | DX: R94.31 Abnormal electrocardiogram [ECG] [EKG] (principal); R94.39 Abnormal result of other cardiovascular function study; E11.8 Type 2 diabetes mellitus with unspecified complications; I10 Essential (primary) hypertension; E78.5 Hyperlipidemia, unspecified; F17.210 Nicotine dependence, cigarettes, uncomplicated | CPT/HCPCS: 99212 ==

== ENCOUNTER 2022-06-15 11:01 | Outpatient (REF) | payer OTHER, SELFPAY ==
--- NOTE | ~2022-06-15 | MM_ITS ---
EXAMINATION: MM DIAGNOSTIC DIGITAL BREAST TOMOSYNTHESIS, RIGHT CLINICAL INFORMATION: Benign right stereotactic biopsy posterior upper inner right breast 11/22/2021 (benign breast tissue with stromal fibrosis and calcifications. No atypia or malignancy. The biopsy has some features of a hyalinized fibroadenoma associated with the calcifications). Also benign-appearing group of calcifications posterior central right breast just lateral to midline, not previously sampled. The lifetime risk of breast cancer based on the Tyrer-Cuzick Model is 5%. COMPARISON: Mammography: 11/22/2021, 11/16/2021, 05/18/2021, 10/26/2020, 10/12/2020 (BI-RADS 0, group not sampled). TECHNIQUE: Digital breast tomosynthesis is performed in both the craniocaudal and mediolateral oblique views along with computer-aided detection (CAD). Synthesized 2D images are generated from the tomosynthesis. Additional magnification right CC and magnification FINDINGS: There are scattered areas of fibroglandular density (ACR BI-RADS breast composition Category b). Parenchymal pattern is similar to prior studies. There is biopsy clip marker posterior upper inner right breast. Some peripheral remaining calcifications are stable from prior exam. There are tightly grouped clearly benign calcifications posterior central slightly outer right breast with a few incidental punctate satellite calcifications which are stable. Right breast calcifications will be reassessed again at next bilateral annual mammography, due in 6 months to conclude long-term surveillance. Preliminary results are provided to the patient at time of visit by the technologist. MM/MM tomosynthesis diagnostic RT IMPRESSION: No significant changes from prior diagnostic exams. ASSESSMENT: BI-RADS 3: Probably Benign RECOMMENDATION: Magnification views right breast at time of annual bilateral mammography, due in 6 months, to conclude long-term surveillance. This patient's information was entered into a reminder system with a target due date for their next mammogram.
== END 2022-06-15 11:02 | disposition home or self-care (01) ==
LOC: HO.MAMMO 11:01
PROVIDERS: PCP Internal Medicine; Visit Provider Internal Medicine
DX: R92.1 Mammographic calcification found on diagnostic imaging of breast (principal)
CPT/HCPCS: 77061; 77065

== ENCOUNTER 2022-06-26 08:48 | Outpatient (REF) | payer OTHER, SELFPAY ==
[2022-06-26 09:32] LABS: Estimated Average Glucose 166 mg/dL; Hemoglobin A1c % 7.4 %
[2022-06-26 10:10] LABS: Anion Gap 14 (12-20)
[2022-06-26 10:40] LABS: Alanine Aminotransferase 112 U/L (0-31); Albumin Level 4.2 g/dL (3.5-5.0); Alkaline Phosphatase 138 U/L (39-117); Aspartate Amino Transferase 66 U/L (5-31); Bilirubin Total 0.3 mg/dL (0.0-1.0); Carbon Dioxide 24 mmol/L (22-29); Chloride 106 mmol/L (96-108); Estimated Glomerular Filt Rate > 60; Glucose Random 114 mg/dL (60-115); Potassium 3.9 mmol/L (3.3-5.1); Sodium 140 mmol/L (135-145); Thyroid Stimulating Hormone 0.75 uIU/mL (0.32-4.0); Total Protein 7.7 g/dL (6.5-8.0)
[2022-06-26 12:02] LABS: Blood Urea Nitrogen 12 mg/dL (9-16)
== END 2022-06-26 08:49 | disposition home or self-care (01) ==
LOC: HO.LAB 08:48
PROVIDERS: PCP Internal Medicine; Visit Provider Internal Medicine
DX: E03.8 Other specified hypothyroidism (principal); E11.9 Type 2 diabetes mellitus without complications; F20.89 Other schizophrenia; R74.01 Elevation of levels of liver transaminase levels; Z72.0 Tobacco use
CPT/HCPCS: 36415; 80053; 83036; 84443

== ENCOUNTER → 2022-07-03 08:54 | Outpatient (BNVA) | payer OTHER, SELFPAY | PROVIDERS: PCP Internal Medicine; Visit Provider Physician Assistant | DX: A63.0 Anogenital (venereal) warts (principal) | CPT/HCPCS: 99202 ==

== ENCOUNTER → 2022-07-13 10:55 | Outpatient (BNVA) | payer OTHER, SELFPAY | PROVIDERS: PCP Internal Medicine; Referring Provider Physician Assistant; Visit Provider Surgery | DX: A63.0 Anogenital (venereal) warts (principal) | CPT/HCPCS: 99202 ==

== ENCOUNTER → 2022-08-31 08:59 | Outpatient (BNVA) | payer OTHER, SELFPAY | PROVIDERS: PCP Internal Medicine; Visit Provider Physician Assistant | DX: A63.0 Anogenital (venereal) warts (principal) | CPT/HCPCS: 99212 ==

== ENCOUNTER 2022-09-26 08:54 | Outpatient (REF) | payer OTHER, SELFPAY ==
[2022-09-26 09:32] LABS: Estimated Average Glucose 160 mg/dL; Hemoglobin A1c % 7.2 %
[2022-09-26 10:00] LABS: Alanine Aminotransferase 88 U/L (0-31); Albumin Level 4.3 g/dL (3.5-5.0); Alkaline Phosphatase 143 U/L (39-117); Anion Gap 18 (12-20); Aspartate Amino Transferase 60 U/L (5-31); Bilirubin Total 0.4 mg/dL (0.0-1.0); Blood Urea Nitrogen 12 mg/dL (9-16); Calcium 10.9 mg/dL (8.4-10.2); Carbon Dioxide 23 mmol/L (22-29); Chloride 105 mmol/L (96-108); Estimated Glomerular Filt Rate > 60; Glucose Random 96 mg/dL (60-115); Potassium 3.8 mmol/L (3.3-5.1); Sodium 142 mmol/L (135-145); Total Protein 8.4 g/dL (6.5-8.0)
== END 2022-09-26 08:55 | disposition home or self-care (01) ==
LOC: HO.LAB 08:54
PROVIDERS: PCP Internal Medicine; Visit Provider Internal Medicine
DX: E03.8 Other specified hypothyroidism (principal); E11.9 Type 2 diabetes mellitus without complications; I10 Essential (primary) hypertension; R21 Rash and other nonspecific skin eruption; R74.01 Elevation of levels of liver transaminase levels
CPT/HCPCS: 36415; 80053; 83036; 84443

== ENCOUNTER 2022-12-20 10:54 | Outpatient (REF) | payer OTHER, SELFPAY ==
--- NOTE | ~2022-12-20 | MM_ITS ---
EXAMINATION: MM DIAGNOSTIC DIGITAL BREAST TOMOSYNTHESIS, BILATERAL CLINICAL INFORMATION: Follow-up right breast calcifications (to establish two-year stability); patient also due for bilateral screening. COMPARISON: Mammography: 06/15/2022, 11/22/2021, 11/16/2021, 05/18/2021, and dating back to 2017. TECHNIQUE: Digital breast tomosynthesis is performed in both the craniocaudal and mediolateral oblique views along with computer-aided detection (CAD). Synthesized 2D images are generated from the tomosynthesis. In addition, 2-D right spot compression CC and ML views were performed. FINDINGS: There are scattered areas of fibroglandular density (ACR BI-RADS breast composition Category b). Calcifications in the approximate 8:00 position of the right breast, posterior one third, remaining coarse in morphology, and grossly stable in number, without suspicious features. 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 No further follow-up recommended. There is a post benign biopsy clip in the upper medial right breast, posterior one third. There are dermal calcifications in the medial left breast. There are no suspicious masses, suspicious grouped calcifications, or areas of architectural distortion in either breast. The parenchymal pattern is stable from prior exams. There are no skin changes. MM/MM tomosynthesis diagnostic BI IMPRESSION: There are no findings suspicious for malignancy in either breast. Calcifications in the approximate 8:00 position posterior right breast remain stable over 2 years and are benign. No further follow-up recommended. Recommend the patient resume annual routine screening. ASSESSMENT: BI-RADS BI-RADS 2 - Benign Findings RECOMMENDATION: 1 year F/U Results were provided to the patient at time of visit by the technologist. This patient's information was entered into a reminder system with a target due date for their next mammogram.
== END 2022-12-20 10:55 | disposition home or self-care (01) ==
LOC: HO.MAMMO 10:54
PROVIDERS: PCP Internal Medicine; Visit Provider Internal Medicine
DX: R92.1 Mammographic calcification found on diagnostic imaging of breast (principal)
CPT/HCPCS: 77062; 77066

== ENCOUNTER → 2022-12-20 11:00 | Outpatient (BNV) | payer OTHER, SELFPAY | PROVIDERS: PCP Internal Medicine; Visit Provider Radiology Diagnostic Radiology | DX: R92.8 Other abnormal and inconclusive findings on diagnostic imaging of breast (principal) | CPT/HCPCS: 77062; 77066 ==

== ENCOUNTER 2022-12-25 09:16 | Outpatient (REF) | payer OTHER, SELFPAY ==
[2022-12-25 09:34] LABS: MANUAL DIFF FLAG NO
[2022-12-25 10:02] LABS: Basophils Percent Auto 0.6 % (0-2); Eosinophils Absolute Auto 0.3 X10*3/uL (0.0-0.4); Eosinophils Percent Auto 3.7 % (0-4); Hematocrit 46.4 % (37.0-47.0); Imm Gran Abs Auto 0.03 X10*3/uL (0.00-0.03); Imm Gran Pct Auto 0.4 % (0.0-0.4); Lymphocytes Absolute Auto 3.2 X10*3/uL (1.2-4.9); Lymphocytes Percent Auto 47.1 % (20-40); Mean Corpuscular HGB Conc 32.3 g/dl (31.0-35.0); Mean Corpuscular Hemoglobin 26.9 pg (27.0-33.0); Mean Corpuscular Volume 83.2 fL (80.0-98.0); Mean Platelet Volume 10.1 fL (9.4-12.3); Monocytes Absolute Auto 0.6 X10*3/uL (0.1-1.2); Monocytes Percent Auto 8.4 % (2-11); Neutrophils Absolute Auto 2.7 x10*3/uL (2.0-8.3); Neutrophils Percent Auto 39.8 % (45-73); Platelet Count 243 X10*3/uL (160-400); Red Blood Count 5.58 X10*6/uL (4.20-5.50); Red Cell Distribution Width 15.4 % (11.0-16.0); White Blood Count 6.8 X10*3/uL (4.8-10.8)
[2022-12-25 10:17] LABS: Estimated Average Glucose 171 mg/dL; Hemoglobin A1c % 7.6 % (<6.0)
[2022-12-25 10:34] LABS: Creatinine Urine 136.63 mg/dL; Microalbum/Creatinine Ratio Ur 70.9 ug/mg cr (<30)
[2022-12-25 10:42] LABS: Alanine Aminotransferase 106 U/L (0-31); Albumin Level 4.3 g/dL (3.5-5.0); Alkaline Phosphatase 134 U/L (39-117); Anion Gap 13 (12-20); Aspartate Amino Transferase 65 U/L (5-31); Bilirubin Total 0.2 mg/dL (0.0-1.0); Blood Urea Nitrogen 10 mg/dL (9-16); Calcium 10.2 mg/dL (8.4-10.2); Carbon Dioxide 22 mmol/L (22-29); Chloride 108 mmol/L (96-108); Cholesterol 135 mg/dL (<200); Estimated Glomerular Filt Rate > 60; Glucose Random 108 mg/dL (60-115); HDL Cholesterol 48 mg/dL (>40); LDL Cholesterol Calculated 62 mg/dL (<100); Potassium 3.8 mmol/L (3.3-5.1); Sodium 139 mmol/L (135-145); Total Protein 7.9 g/dL (6.5-8.0); Triglycerides 125 mg/dL (<150)
[2022-12-25 11:02] LABS: Vitamin B12 414 pg/mL (200-900)
== END 2022-12-25 09:17 | disposition home or self-care (01) ==
LOC: HO.LAB 09:16
PROVIDERS: PCP Internal Medicine; Visit Provider Internal Medicine
DX: E11.9 Type 2 diabetes mellitus without complications (principal); I10 Essential (primary) hypertension; R74.01 Elevation of levels of liver transaminase levels; Z72.0 Tobacco use
CPT/HCPCS: 36415; 80053; 80061; 82043; 82570; 82607; 83036; 85025

== ENCOUNTER 2023-01-09 08:55 | Day surgery (SDC) | payer OTHER, SELFPAY ==
[2023-01-05 10:23] VITALS: BMI 32.3
[2023-01-05 12:21] VITALS: BMI 31.9
--- NOTE | 2023-01-08 09:31 | HO.ANESPROP2 ---
Documented by User: Onelia Mock NP 01/08/23 09:34 HPI - Anesthesia Eval Consult details Narrative: 62yo F for Excision/ Fulguration of Perianal Lesions PMFSH Active Problems Active Problems: All Active Problems (Updated 08/31/22 @ 09:28 by Kelly Burch PA-C) Abnormal mammogram of right breast (Acute) Abnormal stress test (Acute) Abnormal EKG (Acute) Anal condylomata (Acute) Essential hypertension (Acute) Hyperlipidemia, unspecified (Acute) Smoking (Acute) Type 2 diabetes mellitus with unspecified complications (Acute) Past Medical History Medical History History of verrucae (wart) excision Anal condylomata Elevated LFTs Hypothyroid Depression Smoking Hyperlipidemia, unspecified Essential hypertension Type 2 diabetes mellitus with unspecified complications Family History Family History Father No problems noted. Mother Stroke Surgical History Surgical History No pertinent past surgical history Social History Social History Household Members Other:: Lives alone Are you a primary pharmacy customer care specialist to a significant other at home: No Do you presently have visiting nurse or other home services: No Alcohol intake: never Patient Tobacco Use Status: Current everyday Tobacco user Tobacco use type: Cigarette Cigarettes Per Day: 7 Years Smoked: 30 Smoked in Last 30 Days: Yes Use of substances other than those prescribed or required for medical reasons: No Have you been hit, kicked, punched, or otherwise hurt by someone within the past year? If so, by whom?: No Are you DNR?: No Advance Directives: No Advance Directives Information Provided: Yes Advance Directives on File: No Recently lost weight without trying: No Nutrition Risks: No Nutritional Risk Meds Allergies Allergy/AdvReac Type Severity Reaction Status Date / Time amoxicillin [AMOXICILLIN] Allergy Severe Anaphylaxis Verified 01/09/23 10:05 Home Medications Medication Instructions Recorded Confirmed Last Taken Type amlodipine 5 mg tablet 5 mg PO DAILY 02/12/20 01/05/23 01/09/23 07:30 History aripiprazole 10 mg tablet 10 mg PO BEDTIME 02/12/20 01/05/23 Unknown History aspirin 81 mg tablet,delayed 81 mg PO DAILY 02/12/20 01/05/23 01/08/23 History release levothyroxine 112 mcg tablet 112 mcg PO DAILY 02/12/20 01/05/23 01/09/23 07:30 History lisinopril 20 1 tab PO DAILY 02/12/20 01/05/23 Unknown History mg-hydrochlorothiazide 25 mg tablet metformin 1,000 mg tablet 1,000 mg PO BID 02/12/20 01/05/23 Unknown History metoprolol succinate 100 mg 100 mg PO DAILY 02/12/20 01/05/23 01/09/23 07:30 History tablet,extended release 24 hr pantoprazole 40 mg tablet,delayed 40 mg PO DAILY 02/12/20 01/05/23 01/09/23 07:30 History release insulin aspart U-100 100 unit/mL 20 unit subcut TID 06/07/22 01/05/23 01/09/23 07:30 History subcutaneous solution (Novolog U-100 Insulin aspart) insulin glargine 100 unit/mL 55 unit subcut QPM 06/07/22 01/05/23 Unknown History subcutaneous solution (Lantus U-100 Insulin) pravastatin 20 mg tablet 20 mg PO DAILY 06/07/22 01/05/23 Unknown History dapagliflozin propanediol 10 mg 10 mg PO DAILY 01/09/23 01/09/23 01/09/23 07:30 History tablet (Farxiga) Exam Exam Date and Time: January 08, 2023 0931 Height,Weight and Vital Signs: Height 5 ft 5 in Weight 87.09 kg Pertinent Lab Results Pertinent Lab Results: Laboratory Tests 12/25/22 09:32 WBC 6.8 Hgb 15.0 Hct 46.4 Plt Count 243 Sodium 139 Potassium 3.8 Chloride 108 Carbon Dioxide 22 BUN 10 Creatinine 0.86 Narrative Narrative: Per 06/2022 cardiology office visit (f/u after testing): Echocardiogram with normal LVEF, 65-70% and no significant valvular pathology; there was a small pericardial effusion overlying the left ventricle. In the exercise stress test, she had a hypertensive blood pressure response but no anginal-type symptoms at the activity level reached -[address] depression noted but the nuclear component was unremarkable. In the coronary CTA, no evidence of coronary disease. Slight enlargement of pulmonary arteries, from possibly pulmonary hypertension but in the echo, no evidence of the same. Overall, based on the above no evidence of significant CAD. Assessment and Plan Assessment Anesthesia Assessment: Chart Reviewed Documented by User: Claudette Hou MD 01/09/23 11:13 PMFSH Active Problems Active Problems: All Active Problems (Updated 01/09/23 @ 10:31 by Claudette Hou MD) Abnormal mammogram of right breast (Acute) Abnormal stress test (Acute)- CT angio- no CAD Abnormal EKG (Acute) Anal condylomata (Acute) Essential hypertension (Acute) Hyperlipidemia, unspecified (Acute) Smoking (Acute) Type 2 diabetes mellitus with unspecified complications (Acute). On Farxiga. Last dose this am GERD Past Medical History Medical History History of verrucae (wart) excision Anal condylomata Elevated LFTs Hypothyroid Depression Smoking Hyperlipidemia, unspecified Essential hypertension Type 2 diabetes mellitus with unspecified complications Family History Family History Father No problems noted. Mother Stroke Family history of problems with anesthesia: No Surgical History Surgical History No pertinent past surgical history History of Problems with Anesthesia: No Social History Social History Household Members Other:: Lives alone Are you a primary pharmacy customer care specialist to a significant other at home: No Do you presently have visiting nurse or other home services: No Alcohol intake: never Patient Tobacco Use Status: Current everyday Tobacco user Tobacco use type: Cigarette Cigarettes Per Day: 7 Years Smoked: 30 Smoked in Last 30 Days: Yes Use of substances other than those prescribed or required for medical reasons: No Have you been hit, kicked, punched, or otherwise hurt by someone within the past year? If so, by whom?: No Are you DNR?: No Advance Directives: No Advance Directives Information Provided: Yes Advance Directives on File: No Recently lost weight without trying: No Nutrition Risks: No Nutritional Risk Meds Allergies Allergy/AdvReac Type Severity Reaction Status Date / Time amoxicillin [AMOXICILLIN] Allergy Severe Anaphylaxis Verified 01/09/23 10:05 Home Medications Medication Instructions Recorded Confirmed Last Taken Type amlodipine 5 mg tablet 5 mg PO DAILY 02/12/20 01/05/23 01/09/23 07:30 History aripiprazole 10 mg tablet 10 mg PO BEDTIME 02/12/20 01/05/23 Unknown History aspirin 81 mg tablet,delayed 81 mg PO DAILY 02/12/20 01/05/23 01/08/23 History release levothyroxine 112 mcg tablet 112 mcg PO DAILY 02/12/20 01/05/23 01/09/23 07:30 History lisinopril 20 1 tab PO DAILY 02/12/20 01/05/23 Unknown History mg-hydrochlorothiazide 25 mg tablet metformin 1,000 mg tablet 1,000 mg PO BID 02/12/20 01/05/23 Unknown History metoprolol succinate 100 mg 100 mg PO DAILY 02/12/20 01/05/23 01/09/23 07:30 History tablet,extended release 24 hr pantoprazole 40 mg tablet,delayed 40 mg PO DAILY 02/12/20 01/05/23 01/09/23 07:30 History release insulin aspart U-100 100 unit/mL 20 unit subcut TID 06/07/22 01/05/23 01/09/23 07:30 History subcutaneous solution (Novolog U-100 Insulin aspart) insulin glargine 100 unit/mL 55 unit subcut QPM 06/07/22 01/05/23 Unknown History subcutaneous solution (Lantus U-100 Insulin) pravastatin 20 mg tablet 20 mg PO DAILY 06/07/22 01/05/23 Unknown History dapagliflozin propanediol 10 mg 10 mg PO DAILY 01/09/23 01/09/23 01/09/23 07:30 History tablet (Farxiga) Exam Height,Weight and Vital Signs: Height 5 ft 5 in Weight 87.09 kg Vital Signs Temp Pulse Resp BP Pulse Ox O2 Del Method 01/09/23 09:51 96.8 F 74 16 152/75 H 96 Room Air Pertinent Lab Results Pertinent Lab Results: Laboratory Tests 12/25/22 09:32 WBC 6.8 Hgb 15.0 Hct 46.4 Plt Count 243 Sodium 139 Potassium 3.8 Chloride 108 Carbon Dioxide 22 BUN 10 Creatinine 0.86 Lab Results 01/09/23 Range/Units 09:42 POC Glucose 136 H (60-115) mg/dL Airway Mallampati Class: III TM Dist: >3cm Neck ROM: Full Partial: Upper Loose/Missing/Broken Teeth: Yes (Some missing. Many loose. Awaiting dental extractions. Aware of possibility of dislodgement/loss with intubation and understands) Heart: RRR Lungs: CTAB Assessment and Plan Assessment Anesthesia Assessment: Anesthesia Plan Discussed Final Anesthetic Review Family History of Problems with Anesthesia: No History of Problems with Anesthesia: No NPO: Yes ASA Class: III Final Preanesthetic Review: No Changes in Pt Med Stat, Meds/Allgs Chart Reviewed, Consent Obtained/Reviewed and Anes Risks/Benef Reviewed Patient Risk: Intermediate Procedure Risk: Low Assessment/Block/Sedation in SS: Assess/Block/Sedation-SS Anesthetic Plan Anesthetic Plan: GA Disposition: Standard PACU
[2023-01-09 09:47] LABS: Glucose, Whole Blood 136 mg/dL (60-115)
[2023-01-09 09:51] VITALS: BP 152/75; PULSE 74; RESP 16; TEMP 36; O2SAT 96
[2023-01-09] MEDS: Lactated Ringers 1,000 ML 100 ML IVCONT (10:03)
--- NOTE | 2023-01-09 10:37 | MHC.SHP ---
Pre-Procedural Eval Section A Date of Service: 01/09/23 The patient is an INPATIENT: No Section B Chief Complaint: Anogenital (venereal) warts Details of Present Illness: has perianal condylomatous lesions; has history of excision of these lesions 3 years ago in [facility] Relevant Family History (Specify if Yes): No Relevant Social History: None Present Medications: see Short Stay Collaborative assessment Medical History: Significant History ( hyperlipidemia, smoking, diabetes, obesity, hypertension) Allergies: Allergies Allergy/AdvReac Type Severity Reaction Status Date / Time amoxicillin [AMOXICILLIN] Allergy Severe Anaphylaxis Verified 01/09/23 10:05 Review of Systems Sugical H&P ROS: Negative: Constitution, Cardiovascular, Respiratory, Neurological, Psychiatric, Hem-Onc, Allergic/Immunologic, Gastrointestinal, Genitourinary, Musculoskeletal, Integumentary, Endocrine and Eyes/Ears/Nose/Throat Exam Surgical H&P Exam: Normal: HEENT, Normal: Heart, Normal: Lungs, Normal: Extremities, Normal: Abdomen, Normal: Skin and Normal: Neurological Exam Comment: perianal condylomatous lesions Plan Diagnosis/Plan: Unchanged I have reviewed the history and physical and performed a pertinent physical examination on my patient. No changes have occurred unless specified. Time Spent With Patient Time: Total time managing care of this patient today ____ minutes.
--- NOTE | 2023-01-09 11:51 | W.PM.OPN ---
Operative Note Operative Note Date of Service: 01/09/23 Narrative: Preop diagnosis: Perianal condyloma Postop diagnosis: The same Procedure: Excision and fulguration of perianal condyloma Surgeon: Charles Crane MD The patient is a 62-year-old female with multiple perianal lesions that appear to be condylomatous. She had previous excision about 3 years ago in [facility] and this had recurred thereafter She understood the technique of the planned procedure as well as the risks, benefits, and alternatives She was brought to the operating room and placed in prone whitney-knife position under general anesthesia via endotracheal tube. The buttocks were retracted with wide tape laterally. The perianal area was prepped and draped in the usual sterile fashion. A surgical time-out was done. Patient received metronidazole and gentamicin in view of allergies to amoxicillin Examination of the anal orifice revealed condylomatous lesions circumferentially in the perianal skin. I infiltrated the perianal area with lidocaine 1%. I inserted the Jam Garzon retractor in examined the anal canal circumferentially. There were no lesions within sec anal and I will itself. These lesions were limited to the perianal skin I proceeded to then fulgurated and cauterized all this lesions down to agrees eschar. There were multiple of these. There was 1 particularly larger lesion anteriorly next to the vagina that I excised using electrocautery and this was sent as a specimen. I proceeded to cauterize all of these lesions. There was note of good image stasis. I infiltrated the perianal area with Marcaine 0.5% for postop analgesia. The procedure was completed The patient tolerated the procedure well. There were no immediate complications. Initial and final counts of sponges and instruments were correct. Estimated blood loss about less than 5 cc. The patient was extubated without difficulty and transferred to the recovery room with stable vital signs.
[2023-01-09 12:15] VITALS: BP 164/76; PULSE 79; RESP 14; TEMP 36.1; O2SAT 98
[2023-01-09 12:20] VITALS: BP 152/75; PULSE 77; RESP 16; O2SAT 98
[2023-01-09 12:25] VITALS: BP 148/77; PULSE 76; RESP 14; O2SAT 98
[2023-01-09 12:30] VITALS: BP 154/74; PULSE 76; RESP 14; O2SAT 98
[2023-01-09 12:45] VITALS: BP 152/65; PULSE 73; RESP 15; TEMP 36.1; O2SAT 98
== END 2023-01-09 13:10 | disposition home or self-care (01) ==
PROVIDERS: PCP Internal Medicine; Visit Provider Surgery
PROC: (CPT 46922; principal; 2023-01-09 10:50)
DX: A63.0 Anogenital (venereal) warts (principal); I10 Essential (primary) hypertension; E78.5 Hyperlipidemia, unspecified; E03.9 Hypothyroidism, unspecified; R79.89 Other specified abnormal findings of blood chemistry; F17.210 Nicotine dependence, cigarettes, uncomplicated; E11.9 Type 2 diabetes mellitus without complications; Z79.4 Long term (current) use of insulin; Z79.82 Long term (current) use of aspirin; Z79.899 Other long term (current) drug therapy; Z88.1 Allergy status to other antibiotic agents; F32.A Depression, unspecified
CPT/HCPCS: 46922; 82947; 88305; J0330; J1100; J1580; J2250; J2405; J3010

== ENCOUNTER → 2023-01-09 08:55 | Outpatient (BNV) | payer OTHER, SELFPAY | PROVIDERS: PCP Internal Medicine; Visit Provider Surgery | DX: A63.0 Anogenital (venereal) warts (principal) | CPT/HCPCS: 46924; 56501 ==

== ENCOUNTER 2023-01-22 10:59 | Outpatient (AMB) | payer OTHER, SELFPAY ==
--- NOTE | 2023-01-22 11:12 | MHC.OFFVIS ---
Intake Intake Visit Reasons: S/P excision fulguration of perianal lesions Intake Note: This patient presents for a post-op assessment status post fulguration of perianal lesions. Patient c/o; reports no changes or complaints at this time. Uncrater Required: No Accompanied by: Self / Same As Patient Allergies amoxicillin [AMOXICILLIN] Allergy (Severe, Verified 01/22/23 11:18) Anaphylaxis HPI S/P excision fulguration of perianal lesions HPI Details She underwent excision and fulguration perianal condyloma last 01/09/2023. She had multiple lesions in the perianal area removed. She tolerated the procedure well. She currently denies significant complaints except for pain. [facility] Medical History History of verrucae (wart) excision Anal condylomata Elevated LFTs Hypothyroid Depression Smoking Hyperlipidemia, unspecified Essential hypertension Type 2 diabetes mellitus with unspecified complications Surgical History No pertinent past surgical history Family History Father No problems noted. Mother Stroke Social History Household Members Other:: Lives alone Are you a primary respiratory care program director to a significant other at home: No Do you presently have visiting nurse or other home services: No Alcohol intake: never Patient Tobacco Use Status: Current everyday Tobacco user Tobacco use type: Cigarette Cigarettes Per Day: 7 Years Smoked: 30 Female Reproductive History Menstrual Age of Menarche: 14 Review of Systems Const Denies chills and Denies fever(s) Card Denies chest pain, Denies dyspnea and Denies dyspnea on exertion Resp Denies cough, Denies dyspnea and Denies dyspnea on exertion GI Denies hematochezia and Denies change in bowel habits Denies hematuria Musc Denies back pain and Denies limited range of motion Neuro Denies focal weakness and Denies convulsions Psych Denies depression and Denies mood swings Physical Exam Const General: comfortable and no acute distress Orientation/consciousness: patient oriented x3 Neck Neck: Yes no lymphadenopathy Resp Auscultation: clear to auscultation bilaterally Cardio Rhythm: regular rhythm GI Other: Rectal exam shows the excision and fulguration sites are healing well, infected, no discharge, Palpation (GI): Soft to palpation, nontender and no guarding Neuro General: patient oriented x3 Assessment & Plan Assessment & Plan (1) Anal condylomata: Comment: Hold off on colonoscopy -until after surgery- and back from vacation- No GI complaint Code(s): A63.0 - Anogenital (venereal) warts Plan: Status post excision. She had multiple lesions removed surrounding the perianal area.. Her path report confirms condyloma acuminata. She is doing well. The excision site is well healed. She understands the risk of recurrence so I told her that the I would see her again in the office in about 2 months so we can re-examine. There is no evidence of dysplasia based on the report. Coding Level of Care Code Global (46249) Diagnoses Anal condylomata A63.0
== END 2023-01-22 11:24 | disposition home or self-care (01) ==
PROVIDERS: PCP Internal Medicine; Visit Provider Surgery
DX: A63.0 Anogenital (venereal) warts (principal)
CPT/HCPCS: 99024

== ENCOUNTER → 2023-01-22 10:59 | Outpatient (BNVA) | payer OTHER, SELFPAY | PROVIDERS: PCP Internal Medicine; Visit Provider Surgery ==

== ENCOUNTER 2023-02-15 08:58 | Outpatient (AMB) | payer OTHER, SELFPAY ==
--- NOTE | 2023-02-15 09:10 | A.OFFVIS_ITS ---
Intake Vital Signs 02/15/23 09:11 Height 5 ft 5 in Weight 194 lb 0.108 oz BMI 32.3 BP 144/61 H Blood Pressure Location Lt brachial Position Sitting Pulse 80 Intake Visit Reasons: anal condylomate Intake Note: Kyung presents in the office as a follow up. CC: She states that this is a follow up. She had to see the surgeon who she seen over here and she has to see him again. Allergies amoxicillin [AMOXICILLIN] Allergy (Severe, Verified 02/15/23 09:10) Anaphylaxis Medication List - Last Reconciled 02/15/23 by Kelly Burch PA-C amlodipine 5 mg PO DAILY aripiprazole 10 mg PO BEDTIME aspirin 81 mg PO DAILY dapagliflozin propanediol (Farxiga) 10 mg PO DAILY insulin aspart U-100 (Novolog U-100 Insulin aspart) 20 units subcut TID insulin glargine (Lantus U-100 Insulin) 55 units subcut QPM levothyroxine 112 mcg PO DAILY lisinopril-hydrochlorothiazide 20-25 mg 1 tab PO DAILY metformin 1,000 mg PO BID metoprolol succinate ER 100 mg PO DAILY pantoprazole 40 mg PO DAILY pravastatin 20 mg PO DAILY HPI HPI Comments History of Present Illness Details A 62 y/o female seen in August 2022- anal condyloma referred to surgery- multiple lesions- removed-3- f/u 01/22- tolerated well. F/u in March for reexamine- BM are normal - no pain Appetite is good however years of acid reflux, currently taking pantoprazole frequent break through She is due for screening colonoscopy No known family history of GI cancer No nausea, vomiting, hematemesis, hematochezia fever chills PFSH Medical History History of verrucae (wart) excision Anal condylomata Elevated LFTs Hypothyroid Depression Smoking Hyperlipidemia, unspecified Essential hypertension Type 2 diabetes mellitus with unspecified complications Surgical History Hx of colonoscopy No pertinent past surgical history Family History Father No problems noted. Mother Stroke Social History Household Members Other:: Lives alone Are you a primary critical care clinical nurse specialist to a significant other at home: No Do you presently have visiting nurse or other home services: No Alcohol intake: never Patient Tobacco Use Status: Current everyday Tobacco user Tobacco use type: Cigarette Cigarettes Per Day: 7 Years Smoked: 30 Female Reproductive History Menstrual Age of Menarche: 14 Review of Systems Const Denies chills and Denies fever(s) Card Denies chest pain and Denies dyspnea Resp Denies cough and Denies dyspnea GI Denies abdominal pain, Denies hematochezia, Denies change in stool character and Reports heartburn Physical Exam Vital Signs: Last Vital Signs Pulse 80 02/15/23 09:11 BP 144/61 H 02/15/23 09:11 BMI result Body Mass Index 32.3 Const General: cooperative, comfortable and no acute distress Orientation/consciousness: patient oriented x3 Limitations: no limitations Resp Effort & Inspection: normal respiratory effort and able to speak in complete sentences Auscultation: clear to auscultation bilaterally and no wheezes Neuro General: patient oriented x3 Extrem General: Yes full ROM Psych Speech and movement: Clear speech present Affect: normal affect Attitude: cooperative Thought process: Normal thought process present Thought content: Normal thought content present Assessment & Plan Assessment & Plan (1) Anal condylomata: Comment: excised- 01/19/23-reviewed surgical note Code(s): A63.0 - Anogenital (venereal) warts Plan: f/u Dr. Crane as planned (2) Encounter for screening colonoscopy: Code(s): Z12.11 - Encounter for screening for malignant neoplasm of colon Plan: Screening colonoscopy MiraLax Gatorade prep (3) Acid reflux: Comment: years reflux- never had surveillance- as well with hx condyloma- recommend Code(s): K21.9 - Gastro-esophageal reflux disease without esophagitis Plan: EGD Discussed procedure-rare risks Plan EGD and colonoscopy-discussed procedures, risk need for escorted due to anesthesia and prep MG prep- mix at room temp- then may chill night before omit metformin- 12/ dose insulin No DM meds a.m. of procedures Orders: Orders EGD/Dassel Combo - GI Use Only Today A63.0 - Anogenital (venereal) warts, Z12.11 - Encounter for screening for malignant neoplasm of colon Medications: New polyethylene glycol 3350 (Miralax) Take as directed by mouth the day before your procedure. 238 grams PO ONCE 1 day 238 grams 0RF laxative effect bisacodyl (Dulcolax (bisacodyl)) Day before procedure, prep day Take 4 tablets by mouth upon awakening followed by large glass of water 20 mg (4 x 5 mg) PO ONCE 1 day 4 tabs 0RF colonoscopy prep Z12.11 - Encounter for screening for malignant neoplasm of colon Patient Instructions: EGD and colonoscopy MG prep- mix at room temp- then may chill night before omit metformin- 12/ dose insulin No DM meds a.m. of procedures Call with any question or concerns Coding Level of Care Code Est Pt Level 3 (31107) Diagnoses Anal condylomata A63.0 Encounter for screening colonoscopy Z12.11 Acid reflux K21.9 Time Spent (min) 30
[2023-02-15 09:11] VITALS: BP 144/61; PULSE 80; BMI 32.3
== END 2023-02-15 10:40 | disposition home or self-care (01) ==
PROVIDERS: PCP Internal Medicine; Visit Provider Physician Assistant
DX: A63.0 Anogenital (venereal) warts (principal); Z12.11 Encounter for screening for malignant neoplasm of colon; K21.9 Gastro-esophageal reflux disease without esophagitis
CPT/HCPCS: 99213

== ENCOUNTER → 2023-02-15 08:58 | Outpatient (BNVA) | payer OTHER, SELFPAY | PROVIDERS: PCP Internal Medicine; Visit Provider Physician Assistant | DX: Z12.11 Encounter for screening for malignant neoplasm of colon (principal); K21.9 Gastro-esophageal reflux disease without esophagitis; A63.0 Anogenital (venereal) warts | CPT/HCPCS: 99212 ==

== ENCOUNTER 2023-03-26 09:55 | Outpatient (AMB) | payer OTHER, SELFPAY ==
--- NOTE | 2023-03-26 10:15 | A.OFFVIS_ITS ---
Intake Vital Signs 03/26/23 10:16 Height 5 ft 5 in Weight 195 lb 12.328 oz BMI 32.6 Intake Visit Reasons: Anal condylomata, 2 month follow up Intake Note: This patient presents for a two month follow-up assessment for anal condylomata. Pt c/o; reports no complaints School Office Assistant Required: No Channel Rebuilder: Channel Rebuilder offered & declined Accompanied by: Self / Same As Patient Allergies amoxicillin [AMOXICILLIN] Allergy (Severe, Verified 03/26/23 10:26) Anaphylaxis Medication List - Last Reconciled 03/26/23 by Charles Crane MD amlodipine 5 mg PO DAILY aripiprazole 10 mg PO BEDTIME aspirin 81 mg PO DAILY bisacodyl (Dulcolax (bisacodyl)) 20 mg (4 x 5 mg) PO ONCE 1 day dapagliflozin propanediol (Farxiga) 10 mg PO DAILY insulin aspart U-100 (Novolog U-100 Insulin aspart) 20 units subcut TID insulin glargine (Lantus U-100 Insulin) 55 units subcut QPM levothyroxine 112 mcg PO DAILY lisinopril-hydrochlorothiazide 20-25 mg 1 tab PO DAILY metformin 1,000 mg PO BID metoprolol succinate ER 100 mg PO DAILY pantoprazole 40 mg PO DAILY polyethylene glycol 3350 (Miralax) 238 grams PO ONCE 1 day pravastatin 20 mg PO DAILY HPI Anal condylomata, 2 month follow up HPI Details She is here for follow-up after excision of condylomata from the perianal area last January,. She says the excision sites have all healed well. She denies any problems at this time. She says he is doing well overall. [facility] Medical History History of verrucae (wart) excision Anal condylomata Elevated LFTs Hypothyroid Depression Smoking Hyperlipidemia, unspecified Essential hypertension Type 2 diabetes mellitus with unspecified complications Surgical History Hx of colonoscopy No pertinent past surgical history Family History Father No problems noted. Mother Stroke Social History Household Members Other:: Lives alone Are you a primary physician assistant primary care to a significant other at home: No Do you presently have visiting nurse or other home services: No Alcohol intake: never Patient Tobacco Use Status: Current everyday Tobacco user Tobacco use type: Cigarette Cigarettes Per Day: 7 Years Smoked: 30 Female Reproductive History Menstrual Age of Menarche: 14 Review of Systems Const Denies chills and Denies fever(s) Card Denies chest pain, Denies dyspnea and Denies dyspnea on exertion Resp Denies cough, Denies dyspnea and Denies dyspnea on exertion GI Denies hematochezia and Denies change in bowel habits Denies hematuria Musc Denies back pain and Denies limited range of motion Neuro Denies focal weakness and Denies convulsions Psych Denies depression and Denies mood swings Physical Exam Vital Signs: BMI result Body Mass Index 32.6 Const Other: Appears overweight General: comfortable and no acute distress Resp Effort & Inspection: normal respiratory effort GI Other: Excision sites in the perianal area have healed, no new obvious lesions, no infection, no discharge Assessment & Plan Assessment & Plan (1) Anal condylomata: Comment: excised- 01/19/23-reviewed surgical note Code(s): A63.0 - Anogenital (venereal) warts Plan: Status post excision. Her excision sites have healed well. There are no new lesions. There is no evidence of any infection I will see her again in the office in about 6 months to re-examine and repeat her anoscopy. Coding Level of Care Code Global (39445) Diagnoses Anal condylomata A63.0
[2023-03-26 10:16] VITALS: BMI 32.6
== END 2023-03-26 10:29 | disposition home or self-care (01) ==
PROVIDERS: PCP Internal Medicine; Visit Provider Surgery
DX: A63.0 Anogenital (venereal) warts (principal)
CPT/HCPCS: 99024

== ENCOUNTER → 2023-03-26 09:55 | Outpatient (BNVA) | payer OTHER, SELFPAY | PROVIDERS: PCP Internal Medicine; Visit Provider Surgery | DX: A63.0 Anogenital (venereal) warts (principal) | CPT/HCPCS: 99212 ==

== ENCOUNTER 2023-04-13 08:53 | Outpatient (REF) | payer OTHER, SELFPAY | END 2023-04-13 08:54 | disposition home or self-care (01) | LOC: HO.LAB 08:53 | PROVIDERS: PCP Internal Medicine; Visit Provider Internal Medicine | DX: B37.32 Chronic candidiasis of vulva and vagina (principal); E03.9 Hypothyroidism, unspecified; E11.9 Type 2 diabetes mellitus without complications; R74.01 Elevation of levels of liver transaminase levels; R80.8 Other proteinuria | CPT/HCPCS: 36415; 80053; 83036; 84443 ==

== ENCOUNTER 2023-07-16 08:52 | Outpatient (REF) | payer OTHER, SELFPAY ==
[2023-07-16 10:09] LABS: Alanine Aminotransferase 89 U/L (0-31); Albumin Level 4.3 g/dL (3.5-5.0); Alkaline Phosphatase 160 U/L (39-117); Anion Gap 12 (12-20); Aspartate Amino Transferase 58 U/L (5-31); Bilirubin Total 0.3 mg/dL (0.0-1.0); Blood Urea Nitrogen 9 mg/dL (9-16); Calcium 10.3 mg/dL (8.4-10.2); Carbon Dioxide 26 mmol/L (22-29); Chloride 109 mmol/L (96-108); Estimated Glomerular Filt Rate > 60; Glucose Random 80 mg/dL (60-115); Potassium 3.7 mmol/L (3.3-5.1); Sodium 143 mmol/L (135-145); Total Protein 8.1 g/dL (6.5-8.0)
[2023-07-16 10:19] LABS: Estimated Average Glucose 160 mg/dL; Hemoglobin A1c % 7.2 % (<6.0)
== END 2023-07-16 08:53 | disposition home or self-care (01) ==
LOC: HO.LAB 08:52
PROVIDERS: PCP Internal Medicine; Visit Provider Internal Medicine
DX: E03.9 Hypothyroidism, unspecified (principal); E11.9 Type 2 diabetes mellitus without complications; I10 Essential (primary) hypertension; R74.01 Elevation of levels of liver transaminase levels
CPT/HCPCS: 36415; 80053; 83036

== ENCOUNTER 2023-11-06 08:59 | Outpatient (REF) | payer OTHER, SELFPAY ==
[2023-11-06 10:11] LABS: Estimated Average Glucose 177 mg/dL; Hemoglobin A1c % 7.8 % (<6.0)
[2023-11-06 10:39] LABS: Alanine Aminotransferase 89 U/L (0-31); Albumin Level 4.3 g/dL (3.5-5.0); Alkaline Phosphatase 155 U/L (39-117); Anion Gap 14 (12-20); Aspartate Amino Transferase 57 U/L (5-31); Bilirubin Total 0.4 mg/dL (0.0-1.0); Blood Urea Nitrogen 9 mg/dL (9-16); Calcium 10.2 mg/dL (8.4-10.2); Carbon Dioxide 26 mmol/L (22-29); Chloride 105 mmol/L (96-108); Estimated Glomerular Filt Rate > 60; Glucose Random 105 mg/dL (60-115); Potassium 3.5 mmol/L (3.3-5.1); Sodium 141 mmol/L (135-145); Total Protein 7.9 g/dL (6.5-8.0)
[2023-11-06 10:57] LABS: Thyroid Stimulating Hormone 1.17 uIU/mL (0.32-4.0)
== END 2023-11-06 09:00 | disposition home or self-care (01) ==
LOC: HO.LAB 08:59
PROVIDERS: PCP Internal Medicine; Visit Provider Internal Medicine
DX: E11.9 Type 2 diabetes mellitus without complications (principal); R74.01 Elevation of levels of liver transaminase levels; Z72.0 Tobacco use
CPT/HCPCS: 36415; 80053; 83036; 84443

== ENCOUNTER 2023-11-22 11:01 | Outpatient (AMB) | payer OTHER, SELFPAY ==
--- NOTE | 2023-11-22 11:05 | MHC.OFFVIS ---
Vital Signs 11/22/23 11:10 Height 5 ft 5 in Weight 192 lb BMI 31.9 Intake Visit Reasons: Anal condylomata, 6 month follow up Intake Note: This patient presents for six month follow-up for Anal condylomata. Pt c/o; reports no complaints. Airconditioning Engineer Required: No Accompanied by: Self / Same As Patient Allergies amoxicillin [AMOXICILLIN] Allergy (Severe, Verified 11/22/23 11:11) Anaphylaxis Medication List - Last Reconciled 11/22/23 by Charles Crane MD amlodipine 5 mg PO DAILY aripiprazole 10 mg PO BEDTIME aspirin 81 mg PO DAILY bisacodyl (Dulcolax (bisacodyl)) 20 mg (4 x 5 mg) PO ONCE 1 day dapagliflozin propanediol (Farxiga) 10 mg PO DAILY insulin aspart U-100 (Novolog U-100 Insulin aspart) 20 units subcut TID insulin glargine (Lantus U-100 Insulin) 55 units subcut QPM levothyroxine 112 mcg PO DAILY lisinopril-hydrochlorothiazide 20-25 mg 1 tab PO DAILY metformin 1,000 mg PO BID metoprolol succinate ER 100 mg PO DAILY pantoprazole 40 mg PO DAILY polyethylene glycol 3350 (Miralax) 238 grams PO ONCE 1 day pravastatin 20 mg PO DAILY HPI HPI Anal condylomata, 6 month follow up: Details: She is here because of a history of anal condylomata. I had done excision last January, She currently denies significant complaints. Denies any bleeding. She denies any recurrent lesions in the perianal area. [facility] Medical History (Updated 11/22/23 @ 11:20 by Charles Crane MD) History of condyloma acuminatum History of verrucae (wart) excision Anal condylomata Elevated LFTs Hypothyroid Depression Smoking Hyperlipidemia, unspecified Essential hypertension Type 2 diabetes mellitus with unspecified complications Surgical History Hx of colonoscopy No pertinent past surgical history Family History Father No problems noted. Mother Stroke Social History Household Members Other:: Lives alone Are you a primary healthcare corporate account director to a significant other at home: No Do you presently have visiting nurse or other home services: No Alcohol intake: never Patient Tobacco Use Status: Current everyday Tobacco user Tobacco use type: Cigarette Cigarettes Per Day: 7 Years Smoked: 30 Female Reproductive History Menstrual Age of Menarche: 14 Review of Systems Const Denies chills and Denies fever(s) Card Denies chest pain, Denies dyspnea and Denies dyspnea on exertion Resp Denies cough, Denies dyspnea and Denies dyspnea on exertion GI Denies hematochezia and Denies change in bowel habits Denies hematuria Musc Denies back pain and Denies limited range of motion Neuro Denies focal weakness and Denies convulsions Psych Denies depression and Denies mood swings Physical Exam Vital Signs: BMI result Body Mass Index 31.9 Const General: comfortable and no acute distress Orientation/consciousness: patient oriented x3 Neck Neck: Yes no lymphadenopathy Resp Auscultation: clear to auscultation bilaterally Cardio Rhythm: regular rhythm GI Other: Rectal exam does not reveal any condylomatous lesions Palpation (GI): Soft to palpation, nontender and no guarding Neuro General: patient oriented x3 Office Procedures Anoscopy She was in whitney-knife position. The anoscope was gently inserted. A full examination of the anal canal was done. There were no lesions in the anal canal. There were no abnormalities in the mucosa. There were no fissure or induration. There is no bleeding. [id number] Assessment & Plan Assessment & Plan (1) History of condyloma acuminatum: Code(s): Z86.19 - Personal history of other infectious and parasitic diseases Category: Medical Plan: Current exam and anoscopy does not reveal any recurrent lesions. I explained to her that I would recommend repeating the anoscopy in about 6 months. She says she understands the plan. She will come back to the office if she has any problems before that. Coding Level of Care Code Est Pt Level 2 (38679) Diagnoses History of condyloma acuminatum Z86.19 CPT Codes Details - CPT: 25174-[id number] ([id number])
[2023-11-22 11:10] VITALS: BMI 31.9
== END 2023-11-22 11:20 | disposition home or self-care (01) ==
PROVIDERS: PCP Internal Medicine; Visit Provider Surgery
DX: Z86.19 Personal history of other infectious and parasitic diseases (principal)
CPT/HCPCS: 46600; 99212

== ENCOUNTER → 2023-11-22 11:01 | Outpatient (BNVA) | payer OTHER, SELFPAY | PROVIDERS: PCP Internal Medicine; Visit Provider Surgery | DX: Z86.19 Personal history of other infectious and parasitic diseases (principal) | CPT/HCPCS: 46600; 99212 ==

== ENCOUNTER 2024-01-30 08:19 | Outpatient (REF) | payer OTHER, SELFPAY ==
--- NOTE | ~2024-01-30 | MM_ITS ---
EXAMINATION: MM SCREENING DIGITAL BREAST TOMOSYNTHESIS, BILATERAL CLINICAL INFORMATION: Screening. Asymptomatic. COMPARISON: Mammography: Comparison is made with available priors TECHNIQUE: Digital breast mammography with tomosynthesis is performed in both the craniocaudal and mediolateral oblique views along with computer-aided detection (CAD). FINDINGS: There are scattered areas of fibroglandular density (ACR BI-RADS breast composition Category b). Right marker clip. Bilateral scattered calcifications are stable. There are no significant masses, abnormal calcifications, or other abnormalities. MM/MM tomosynthesis screening BI IMPRESSION: No mammographic evidence of malignancy. ASSESSMENT: BI-RADS BI-RADS 2 - Benign Findings RECOMMENDATION: Routine annual mammography screening. 1 year F/U This examination should not preclude the clinical evaluation of a suspicious palpable abnormality. This patient's information was entered into a reminder system with a target due date for their next mammogram. Electronically signed by: Jennifer Ricardo DO 02/11/2024 03:50 PM BEN
== END 2024-01-30 08:20 | disposition home or self-care (01) ==
LOC: HO.MAMMO 08:19
PROVIDERS: PCP Internal Medicine; Visit Provider Internal Medicine
DX: Z12.31 Encounter for screening mammogram for malignant neoplasm of breast (principal)
CPT/HCPCS: 77063; 77067

== ENCOUNTER → 2024-01-30 08:58 | Outpatient (BNV) | payer OTHER, SELFPAY | PROVIDERS: PCP Internal Medicine; Visit Provider Internal Medicine | DX: Z12.31 Encounter for screening mammogram for malignant neoplasm of breast (principal) | CPT/HCPCS: 77063; 77067 ==

== ENCOUNTER 2024-02-27 08:54 | Outpatient (REF) | payer OTHER, SELFPAY ==
[2024-02-27 09:47] LABS: Estimated Average Glucose 163 mg/dL; Hemoglobin A1C 208.8035 umol/L; Hemoglobin A1c % 7.3 % (<6.0); Total Hemoglobin (HGBA1C) 3688.0927 umol/L
[2024-02-27 10:04] LABS: Alanine Aminotransferase 70 U/L (0-31); Alkaline Phosphatase 175 U/L (39-117); Anion Gap 15 (12-20); Aspartate Amino Transferase 46 U/L (5-31); Bilirubin Total 0.3 mg/dL (0.0-1.0); Blood Urea Nitrogen 8 mg/dL (9-16); Calcium 9.9 mg/dL (8.4-10.2); Carbon Dioxide 23 mmol/L (22-29); Chloride 107 mmol/L (96-108); Cholesterol 116 mg/dL (<200); Estimated Glomerular Filt Rate > 60; Glucose Random 108 mg/dL (60-115); HDL Cholesterol 46 mg/dL (>40); LDL Cholesterol Calculated 50 mg/dL (<100); Potassium 3.9 mmol/L (3.3-5.1); Sodium 141 mmol/L (135-145); Total Protein 7.7 g/dL (6.5-8.0); Triglycerides 104 mg/dL (<150)
== END 2024-02-27 08:55 | disposition home or self-care (01) ==
LOC: HO.LAB 08:54
PROVIDERS: Absent Provider Registered Nurse; PCP Internal Medicine; Visit Provider Internal Medicine
DX: E03.9 Hypothyroidism, unspecified (principal); E11.65 Type 2 diabetes mellitus with hyperglycemia; R74.01 Elevation of levels of liver transaminase levels; Z72.0 Tobacco use; Z79.899 Other long term (current) drug therapy
CPT/HCPCS: 36415; 80053; 80061; 83036

== ENCOUNTER → 2024-05-12 09:07 | Outpatient (BNVA) | payer OTHER, SELFPAY | PROVIDERS: PCP Internal Medicine; Visit Provider Surgery | DX: A63.0 Anogenital (venereal) warts (principal) | CPT/HCPCS: 46600; 99212 ==

== ENCOUNTER 2024-07-25 08:53 | Outpatient (REF) | payer OTHER, SELFPAY ==
--- OUTSIDE RECORDS SUMMARY | 2024-07-25 09:17 | XMS_ITS ---
Author Organization [facility] Address [address] [place] [id number] Care Team Providers Care Research & Insights Executive Name Role Phone Noris Casillas Primary Care Provider Unavailab Arsalan Gage [phone] REASON FOR VISIT Send copy to OLYA Nuñez at [facility] GI Encounters Encounter Location Date Provider Diagnosis [facility] [address] [place] [id number] 03/06/2023 Arsalan Simms Plan Of Treatment No Information Progress Notes * ERNESTO CARRILLODOB: [birth year] (62 yo F)Acc No.[id number]:03/06/2023 Patient:?ERNESTO CARRILLO :1960???Age:62 Y???Sex:Female Address:[address] [place] [address] , [place], [address] * true * Date:? Generated for [place]/Luc/eTransmitting on:?07/25/2024 09:17 AM EDT
--- OUTSIDE RECORDS SUMMARY | 2024-07-25 09:17 | XMS_ITS | Patient Health Record ---
Author Organization [facility] Address [address] [place] [address] Care Team Providers Care Lmsw Name Role Phone Noris Casillas Primary Care Provider Arsalan Velasquez Unavailable [phone] Allergies Allergen (clinical drug ingredient) Drug/Non Drug Allergy documented on EMR Reaction Allergy Type Onset Date Status amoxicillin Amoxicillin Unknown Drug Allergy Act jemima Reason For Referral No Information Medications Medication SIG (Take, Route, Frequency, Duration) Notes Start Date End Date Status metFORMIN HCl 1000 MG Oral for 90 Active Aspirin Low Dose 81 MG Oral for 90 Active NovoLOG FlexPen 100 UNIT/ML Subcutaneous for 75 Active Cetirizine HCl 10 MG 1 tablet Orally Onc e a day for 30 day(s) Active Levothyroxine Sodium 112 MCG Oral for 90 Active Diflucan 150 MG 1 tablet Orally as directed Active Lantus SoloStar 100 UNIT/ML Subcutaneous for 25 Active ARIPiprazole 10 MG Oral for 90 Active Farxiga 10 MG Oral for 90 Acti ve Metoprolol Succinate ER 100 MG Oral for 90 Active Pantoprazole Sodium 40 MG 1 tablet Orall y Once a day for 30 day(s) Active Flonase Allergy Relief 50 MCG/ACT 1 spray in each nostril Nasally Once a day for 30 day(s) Active Lisinopril-hydroCHLOROthiaz valentin 20-25 MG Oral for 90 Active Naproxen 500 MG 1 tablet as needed O rally every 12 hrs Active Pravastatin Sodium 20 MG Oral for 90 Active amLODIPine Besylate 5 MG Oral for 90 Active Social History Tobacco Use: Social History Observation Description Date Details (start date - stop date) Current Smoker NA - NA Tobacco Use/Smoking Question Answer Notes Patient is a current smoker How often do you smoke cigarettes? every day How many cigarettes a day do you smoke? 6-10 Plan Of Treatment No Information Insurance Providers Payer Name Payer Address Payer Phone Subscriber Number Group Number Insured Name Patient Relationship to Insured Coverage Start Date Coverage End Date [facility] [address] [place] [phone] [id number] ERNESTO GOTTI Self - patient is the insured Medical (General) History Medical History History ICD Code hypertension diabetes mellitus GERD Hypothyroidism hypercholesterolemia Surgical History Surgery Date(Month/Year) breast biopsy warts on buttocks
--- OUTSIDE RECORDS SUMMARY | 2024-07-25 09:18 | XMS_ITS ---
Author Organization [facility] Address [address] [place] [address] Care Team Providers Care Geomorphologist Name Role Phone Noris Casillas Primary Care Provider UnavailArsalan Germain Unavailable [phone] Allergies Allergen (clinical drug ingredient) Drug/Non Drug Allergy documented on EMR Reaction Allergy Type Onset Date Status amoxicillin Amoxicillin Unknown Drug Allergy Act jemima REASON FOR VISIT Patient presents today for elevated lft's Medications Medication SIG (Take, Route, Frequency, Duration) Notes Start Date End Date Status Levothyroxine Sodium 112 MCG Oral for 90 Active Lantus SoloStar 100 UNIT/ML Subcutaneous for 25 Active Lisinopril-hydroCHLOROthiaz valentin 20-25 MG Oral for 90 Active Pravastatin Sodium 20 MG Oral for 90 Active amLODIPine Besylate 5 MG Oral for 90 Active metFORMIN HCl 1000 MG Oral for 90 Active Aspirin Low Dose 81 MG Oral for 90 Active ARIPiprazole 10 MG Oral for 90 Active Farxiga 10 MG Oral for 90 Acti ve Metoprolol Succinate ER 100 MG Oral for 90 Active NovoLOG FlexPen 100 UNIT/ML Subcutaneous for 75 Active Cetirizine HCl 10 MG 1 tablet Orally Onc e a day for 30 day(s) Active Pantoprazole Sodium 40 MG 1 tablet Orall y Once a day for 30 day(s) Active Flonase Allergy Relief 50 MCG/ACT 1 spray in each nostril Nasally Once a day for 30 day(s) Active Naproxen 500 MG 1 tablet as needed O rally every 12 hrs Active Diflucan 150 MG 1 tablet Orally as directed Active Social History Tobacco Use: Social History Observation Description Date Details (start date - stop date) Current Smoker NA - NA Tobacco Use/Smoking Question Answer Notes Patient is a current smoker How often do you smoke cigarettes? every day How many cigarettes a day do you smoke? 6- Vital Signs Temperature 97.5 degrees Fahrenheit 03/06/20 23 Blood pressure systolic 00 mm Hg 03/06/20 23 Blood pressure diastolic 00 mm Hg 023 Height 5 ft 5 in in 03/06/2023 Weight 195 lbs 03/06/2023 BMI 32.45 kg/m2 03/06/2023 Encounters Encounter Location Date Provider Diagnosis [facility] [address] [place] [address] 03/06/2023 Arsalan Simms Plan Of Treatment No Information Progress Notes * ERNESTO CARRILLODOB: [birth year] (63 yo F)Acc No.[id number]:03/06/2023 Progress Notes Patient:?ERNESTO CARRILLO Provider:?Arsalan Simms MD :1960???Age:62 Y???Sex:Female D ate:03/06/2023 Address:[address] [place], [place] [id number] Pcp:Noris Casillas Subjective: * Chief Complaints: * ???1. Patient presents today for elevated lft's. * Medical History:?Hypertensio n, Diabetes mellitus, GERD, Hypothyroidism, Hypercholesterolemia. * Surgical History:?breast bio psy , warts on buttocks . * Family History:?Father: dece ased.?Mother: , diagnosed with Diabetes, HTN (hypertension).? no known hx of colon ca. * Social History:?Tobacco Use:?Tobacco Use/Smoking?Patient is a?current smoker,?How often do you smoke cigarettes??every day,?How many cigarettes a day do you smoke??6-10.?Miscellaneous:?Marital status: single. Occupation: retired. * Medications:?Taking Diflucan 150 MG Tablet 1 tablet Orally as directed , Taking Pantoprazole Sodium 40 MG Tablet Delayed Release 1 tablet Orally Once a day , Taking Naproxen 500 MG Tablet Delayed Release 1 tablet as needed Orally every 12 hrs , Taking Flonase Allergy Relief 50 MCG/ACT Suspension 1 spray in each nostril Nasally Once a day , Taking Cetirizine HCl 10 MG Tablet 1 tablet Orally Once a day , Taking NovoLOG FlexPen 100 UNIT/ML Solution Pen-injector Subcutaneous , Taking Aspirin Low Dose 81 MG Tablet Delayed Release Oral , Taking metFORMIN HCl 1000 MG Tablet Oral , Taking Metoprolol Succinate ER 100 MG Tablet Extended Release 24 Hour Oral , Taking Farxiga 10 MG Tablet Oral , Taking ARIPiprazole 10 MG Tablet Oral , Taking Lantus SoloStar 100 UNIT/ML Solution Pen-injector Subcutaneous , Taking amLODIPine Besylate 5 MG Tablet Oral , Taking Pravastatin Sodium 20 MG Tablet Oral , Taking Lisinopril-hydroCHLOROthiazide 20-25 MG Tablet Oral , Taking Levothyroxine Sodium 112 MCG Tablet Oral , Medication List reviewed and reconciled with the patient * Allergies:?Amoxicillin. Objective: * Vitals:?Wt: 195 lbs, Ht: 5 f t 5 in, BMI:32.45Index, BP: 00/00 mm Hg, Temp: 97.5. Assessment: Plan: * Treatment: * Preventive Medicine:? ??Counseling:?Care goal follow-up plan:?Above Normal BMI Follow-up?Giving encouragement to exercise,?BMI management provided?Yes.? * * The named appointment provid er may or may not be the originator of this progress note, and it is not deemed complete until electronically signed by the appointment provider. Sign off status: Pending * Provider:?Arsalan Simms MD Date:? 023 Generated for [place]/Luc/Rinku on:?07/25/2024 09:17 AM EDT
[2024-07-25 09:57] LABS: Estimated Average Glucose 163 mg/dL; Hemoglobin A1C 207.8721 umol/L; Hemoglobin A1c % 7.3 % (<6.0); Total Hemoglobin (HGBA1C) 3691.8485 umol/L
[2024-07-25 10:23] LABS: Creatinine Urine 79.58 mg/dL
[2024-07-25 10:33] LABS: Microalbum/Creatinine Ratio Ur 1056.7 ug/mg cr (<30)
[2024-07-25 11:01] LABS: Alanine Aminotransferase 83 U/L (0-31); Albumin Level 4.2 g/dL (3.5-5.0); Anion Gap 15 (12-20); Aspartate Amino Transferase 52 U/L (5-31); Bilirubin Total 0.3 mg/dL (0.0-1.0); Blood Urea Nitrogen 7 mg/dL (9-16); Calcium 10.2 mg/dL (8.4-10.2); Carbon Dioxide 23 mmol/L (22-29); Chloride 108 mmol/L (96-108); Estimated Glomerular Filt Rate > 60; Glucose Random 66 mg/dL (60-115); Potassium 3.4 mmol/L (3.3-5.1); Sodium 143 mmol/L (135-145); Thyroid Stimulating Hormone 1.49 uIU/mL (0.32-4.0); Total Protein 7.9 g/dL (6.5-8.0)
[2024-07-25 19:47] LABS: Alkaline Phosphatase 206 U/L (39-117)
== END 2024-07-25 08:54 | disposition home or self-care (01) ==
LOC: HO.LAB 08:53
PROVIDERS: PCP Internal Medicine; Visit Provider Internal Medicine
DX: E03.9 Hypothyroidism, unspecified (principal); E11.9 Type 2 diabetes mellitus without complications; R74.01 Elevation of levels of liver transaminase levels; R80.8 Other proteinuria; Z72.0 Tobacco use
CPT/HCPCS: 36415; 80053; 82043; 82570; 83036; 84443

== ENCOUNTER 2024-08-27 08:56 | Outpatient (AMB) | payer OTHER, SELFPAY ==
--- NOTE | 2024-08-27 09:07 | MHC.OFFVIS ---
Vital Signs 08/27/24 09:10 Height 5 ft 5 in Weight 198 lb BMI 32.9 BP 141/73 H Blood Pressure Location Lt brachial Position Sitting Pulse 78 Pulse Oximetry (%) 98 Oxygen Delivery Method Room Air Intake Visit Reasons: GERD Kelly Patient Intake Note: Patient complex follow up for GERD/Kelly julio 02/15/2023. Patient denies any GI issues for today visit. Linen Grader Required: No Accompanied by: Self / Same As Patient Allergies amoxicillin [AMOXICILLIN] Allergy (Severe, Verified 08/27/24 09:06) Anaphylaxis HPI HPI GERD Kelly Patient: Details: Patient is a 63-year-old female with PMH of hypothyroidism, depression, hyperlipidemia, hypertension, diabetes and nicotine dependence. Last visit with OLYA Gomes 02/15/2023 for pre colonoscopy screening. Kyung presents for follow-up regarding elevated liver enzymes and scheduling her colonoscopy, previously discussed but not completed. She had elevated liver levels noted back in July, with a history of consistent elevations since 2019. An ultrasound in 2022 indicated fatty liver. There are concerns this might be linked to diabetes with an A1C now stable at 7.3. Kyung denies regular alcohol use and reports one incomplete drink socially at . Kyung reports no symptoms of abdominal pain, constipation, diarrhea, or blood in stool, and her pantoprazole effectively controls her acid reflux symptoms. She also mentions seeing a web development consultant in 2022, who confirmed no significant heart issues, and she has not needed to follow up since. Patient denies: fever/chills, n/v, appetite changes, regurgitation, dysphasia, unintentional wt loss or ab pain. Social History: - Alcohol Use: rare social drinker (? More). - Tobacco Use: Smokes ~6 cigarettes per day. - Drug Use: Occasional marijuana use (~once/month). - family hx as below -denies personal hx of CA -tolerated anesthesia in the past without difficulty. [facility] Medical History History of condyloma acuminatum History of verrucae (wart) excision Anal condylomata Elevated LFTs Hypothyroid Depression Smoking Hyperlipidemia, unspecified Essential hypertension Type 2 diabetes mellitus with unspecified complications Surgical History Hx of colonoscopy No pertinent past surgical history Family History (Updated 08/27/24 @ 09:27 by Eve Estrada CNP) Father No problems noted. Mother Stroke Hypertension Diabetes Social History Household Members Other:: Lives alone Are you a primary healthcare administrator to a significant other at home: No Do you presently have visiting nurse or other home services: No Alcohol intake: never Patient Tobacco Use Status: Current everyday Tobacco user Tobacco use type: Cigarette Cigarettes Per Day: 7 Years Smoked: 30 Female Reproductive History Menstrual Age of Menarche: 14 Review of Systems Const Reports as per HPI ENT Reports as per HPI Card Reports as per HPI Resp Reports as per HPI GI Reports as per HPI Reports as per HPI Physical Exam Const General: healthy appearing, no acute distress and well developed Nutritional Appearance: well nourished Orientation/consciousness: patient oriented x3 HEENT Head: Yes normal to inspection, Yes normocephalic and Yes atraumatic Face and sinus: Yes normal facial exam Eyes General: appearance normal, both eyes and all related structures Neck Neck: Yes normal visual inspection Resp Effort & Inspection: normal respiratory effort, able to speak in complete sentences, no tracheal deviation and symmetric chest movement Auscultation: clear to auscultation bilaterally Cardio Jugular venous distension: no JVD Rate: regular rate Rhythm: regular rhythm Heart sounds: S1 normal heart sound present, S2 normal heart sound present, no gallops and no murmurs GI Inspection: Yes normal to inspection, No distended and Yes obesity Palpation (GI): Soft to palpation, not firm, nontender, no guarding and not rigid Auscultation: normal bowel sounds Neuro General: patient oriented x3 Gait exam (Neuro): Normal gait present Psych Appearance: grossly normal Mental Status: mental status grossly normal Speech and movement: Normal speech and movement present Affect: normal affect Attitude: cooperative Thought process: Normal thought process present Thought content: Normal thought content present Insight: Good insight present (Psych) Judgement: Good judgement present (Psych) Results Reviewed Results Reviewed: Date of Service: 05/19/22 Procedure(s): US abdomen comp w elastography Accession Number(s): [id number] cc: Noris Casillas MD~ EXAMINATION: US COMPLETE ABDOMEN WITH LIVER ELASTOGRAPHY CLINICAL INFORMATION: Abnormal liver function tests COMPARISON: Previous abdominal ultrasound April 2021 TECHNIQUE: Real-time imaging of the abdominal viscera. Noninvasive ultrasound liver fibrosis assessment is performed using Luis ElastPQ point quantification shear wave elastography (2D-SWE) with a C5-2 MHz transducer. Multiple elastography samples are obtained. FINDINGS: PANCREAS: The visualized pancreatic head and body are normal in appearance. The remainder of the pancreas is obscured from visualization by the overlying bowel gas. ABDOMINAL AORTA: The proximal abdominal aorta is normal in caliber. The mid and distal abdominal aorta is not well visualized due to bowel gas. INFERIOR VENA CAVA: Visualized portions are normal. LIVER: Liver echotexture is increased. The liver is normal in contour. No focal liver lesion. No biliary duct dilatation. The right lobe measures 16 cm in length. The left lobe measures 15 cm in length. Portal flow is normal/hepatopedal Shear wave liver elastography median stiffness is 1.8 m/s (reference: normal median stiffness is 1.3 m/s or less). IQR/median stiffness to assess sampling precision is 0.07 (reference: good quality data set is IQR/median stiffness of 0.15 or less). GALLBLADDER: There is adenomyomatosis of gallbladder wall. No gallstones. The gallbladder is normal in size. COMMON BILE DUCT: Normal in caliber measuring 0.5 cm in diameter. RIGHT KIDNEY: Normal. No hydronephrosis. No renal calculi or focal parenchymal lesions. The kidney measures 13 cm in maximum dimension. LEFT KIDNEY: Simple cyst in the midpole measuring 5 mm. No hydronephrosis. No renal calculi . The kidney measures 11.3 cm in maximum dimension. SPLEEN: Normal. The spleen measures 9.3 cm in maximum dimension. FREE FLUID: None. US/US abdomen comp w elastography IMPRESSION: 1. Impression: Echogenic liver probably representing fatty infiltration. Adenomyomatosis of the gallbladder wall. Small right renal cyst. Limited visualization of the pancreas and aorta. 2. Liver elastography: Slightly elevated liver stiffness. Adequate liver sampling. Assessment & Plan Assessment & Plan (1) Transaminitis: Code(s): R74.01 - Elevation of levels of liver transaminase levels Category: Medical Plan: Longstanding, dating back to 2019. Liver elastography completed May 2022 with findings suggestive of fatty liver with stiffness of 1.8. We will proceed with labs as below. Additional Tests: Fasting blood work for repeat and further evaluation of liver function, including ruling out other etiologies like viral serology, inflammatory disease ( Sarcoidosis/IBD) or autoimmune conditions. CXR also ordered. Endoscopy as below. Will need to consider liver biopsy if workup unyielding. (2) Encounter for screening colonoscopy: Code(s): Z12.11 - Encounter for screening for malignant neoplasm of colon Category: Medical Plan: Due for screening and further evaluation given elevated LFTs and Alk phos. Diagnostic Tests: Prescriptions for laxative tablets and Miralax sent to pharmacy; instructions for Gatorade purchase and clear liquid diet given. Medications: - reviewed medication to hold prior to procedure, written instructions provided. Nurse to review couple weeks prior. - Use Tylenol if needed for pain. Patient educated on procedure preparation, including avoiding certain foods and ensuring clear liquid intake. Advised on necessity for ride post-procedure due to sedation. (3) Acid reflux: Code(s): K21.9 - Gastro-esophageal reflux disease without esophagitis Category: Medical Qualifiers: Esophagitis presence: esophagitis presence not specified Qualified Code(s): K21.9 - Gastro-esophageal reflux disease without esophagitis Plan: Chronic. Well managed with pantoprazole. We discussed obtaining EGD at time of colonoscopy given chronic presentation, she is agreeable. Medications: Continue pantoprazole 40 mg daily as currently prescribed. Encouraged to take pantoprazole as prescribed, taken at least 30-60 minutes before a meal. Education on GERD prevention : -Advised against heavy meals; encouraged small, frequent meals instead of large ones. - Instructed to remain upright for 2?3 hours after eating. - Advised to avoid late-night meals, spicy foods, caffeine, alcohol, known dietary triggers, and tight-fitting clothing. - Emphasis placed on gradual implementation of lifestyle changes to improve adherence and symptom control. Plan Reviewed cardiology note from June 2022 with indication of normal VF 65-70% with out significant valvular pathology. Also without any evidence of significant CAD. Recommendations for aggressive risk factor modification. Her A1c has improved to 7.3%. We will obtain updated lipid panel. We will proceed with endoscopy as discussed. follow up in 4 weeks or sooner as needed. Time: I spent a total of 75 minutes on the date of encounter which includes: Preparing to see the patient (reviewed previous documentation, test results and medical history) Performing a medically appropriate exam and/or evaluation Ordering medications, tests, and procedures Documenting clinical information in the health record Consulting with supervising physician Orders: Orders Liver Fibrosis Pnl Today R74.01 - Elevation of levels of liver transaminase levels Ferritin Today R74.01 - Elevation of levels of liver transaminase levels Lipase Today R74.01 - Elevation of levels of liver transaminase levels Vitamin D 1,25 dihydroxy Today R74.01 - Elevation of levels of liver transaminase levels Prothrombin Time INR Today R74.01 - Elevation of levels of liver transaminase levels Smooth Muscle Antibody Today R74.01 - Elevation of levels of liver transaminase levels Complete Blood Count Auto Diff Today R74.01 - Elevation of levels of liver transaminase levels Immunoglobulins,IgG IgA IgM Today R74.01 - Elevation of levels of liver transaminase levels Alkaline Phosphatase Isoenzyme Today R74.01 - Elevation of levels of liver transaminase levels Hepatitis A,B,C Profile Today R74.01 - Elevation of levels of liver transaminase levels Comprehensive Met. Panel Today R74.01 - Elevation of levels of liver transaminase levels Vitamin B12 and Folate Today R74.01 - Elevation of levels of liver transaminase levels IRON PROFILE Today R74.01 - Elevation of levels of liver transaminase levels Mitochondrial Antibody Today R74.01 - Elevation of levels of liver transaminase levels Lipid Panel Today R74.01 - Elevation of levels of liver transaminase levels Angiotensin Converting Enzyme Today R74.01 - Elevation of levels of liver transaminase levels, R74.8 - Abnormal levels of other serum enzymes Gamma Glutamyl Transpeptidase Today R74.8 - Abnormal levels of other serum enzymes XR chest 2V Today R74.01 - Elevation of levels of liver transaminase levels, R74.8 - Abnormal levels of other serum enzymes Medications: Refilled bisacodyl (Dulcolax (bisacodyl)) Day before procedure, prep day Take 4 tablets by mouth upon awakening followed by large glass of water 20 mg (4 x 5 mg) PO ONCE 1 day 4 tabs 0RF colonoscopy prep Z12.11 - Encounter for screening for malignant neoplasm of colon polyethylene glycol 3350 (Miralax) Take as directed by mouth the day before your procedure. 238 grams PO ONCE 1 day 238 grams 0RF laxative effect Coding Level of Care Code Established Pt Est Pt Level 5 (31979) Patient Type Established Diagnoses Transaminitis R74.01 Encounter for screening colonoscopy Z12.11 Gastroesophageal reflux disease, unspecified whether esophagitis present K21.9 Esophagitis presence: esophagitis presence not specified
[2024-08-27 09:10] VITALS: BP 141/73; PULSE 78; O2SAT 98; BMI 32.9
--- OUTSIDE RECORDS SUMMARY | 2024-08-27 10:12 | XMS_ITS | Patient Health Record ---
Author Organization [facility] Address [address] [place] [address] Care Team Providers Care Moving Picture Producer Name Role Phone Noris Casillas Primary Care Provider Arsalan Velasquez Unavailable [phone] Allergies Allergen (clinical drug ingredient) Drug/Non Drug [...] Insured Coverage Start Date Coverage End Date [facility] [address] [place] [address] [id number] ERNESTO GOTTI Self - patient is the insured Medical (General) History Medical History History ICD Code hypertension diabetes mellitus GERD Hypothyroidism hypercholesterolemia Surgical History Surgery Date(Month/Year) breast biopsy warts on buttocks
--- OUTSIDE RECORDS SUMMARY | 2024-08-27 10:12 | XMS_ITS ---
Author Organization [facility] Address [address] [place] [id number] Care Team Providers Care Circle Beveler Name Role Phone Noris Casillas Primary Care Provider Unavailab Arsalan Gage [phone] REASON FOR VISIT Send copy to OLYA Nuñez at [facility] [place] Encounter Location Date Provider Diagnosis [facility] [address] [place] [phone] 03/06/2023 Arsalan Simms Plan Of Treatment No Information Progress Notes * ERNESTO CARRILLODOB: [birth year] (62 yo F)Acc No.[id number]:03/06/2023 Patient:?ERNESTO CARRILLO :1960???Age:62 Y???Sex:Female Address:[address] [place] [address] , [place], [address] * true * Date:? Generated for Bernabei abundio/Luc/eTransmitting on:?08/27/2024 10:12 AM EDT
--- OUTSIDE RECORDS SUMMARY | 2024-08-27 10:13 | XMS_ITS ---
Author Organization [facility] Address [address] [place] [address] Care Team Providers Care Lock Stitch Channeler Name Role Phone Noris Casillas Primary Care Provider UnavailArsalan Germain Unavailable [phone] Allergies Allergen (clinical drug ingredient) Drug/Non Drug [...] 03/06/2023 Encounters Encounter Location Date Provider Diagnosis [facility] [address] [place] [address] 03/06/2023 Arsalan Simms Plan Of Treatment No Information Progress Notes * ERNESTO CARRILLODOB: [birth year] (63 yo F)Acc No.[id number]:03/06/2023 Progress Notes Patient:?ERNESTO CARRILLO Provider:?Arsalan Simms MD :1960???Age:62 Y???Sex:Female D ate:03/06/2023 Address:[address] [place], [place] [id number] Pcp:Noris Casillas Subjective: * Chief Complaints: * ???1. Patient presents today for elevated lft's. * Medical History:?Hypertensio n, Diabetes mellitus, GERD, Hypothyroidism, Hypercholesterolemia. * Surgical History:?breast bio psy , warts on buttocks . * Family History:?Father: dece ased.?Mother: , diagnosed with HTN (hypertension), Diabetes.? no known hx of colon ca. * [...] MD Date:? 023 Generated for [place]/uLc/Rinku on:?08/27/2024 10:12 AM EDT
== END 2024-08-27 09:53 | disposition home or self-care (01) ==
LOC: HO.HGI 08:56
PROVIDERS: PCP Internal Medicine; Visit Provider Nurse Practitioner Family
DX: R74.01 Elevation of levels of liver transaminase levels (principal); K21.9 Gastro-esophageal reflux disease without esophagitis
CPT/HCPCS: 99215

== ENCOUNTER → 2024-08-27 08:56 | Outpatient (BNVA) | payer OTHER, SELFPAY | PROVIDERS: PCP Internal Medicine; Visit Provider Nurse Practitioner Family | DX: K21.9 Gastro-esophageal reflux disease without esophagitis (principal); Z12.11 Encounter for screening for malignant neoplasm of colon; R74.01 Elevation of levels of liver transaminase levels | CPT/HCPCS: 99212 ==

== ENCOUNTER 2024-09-10 09:23 | Outpatient (REF) | payer OTHER, SELFPAY ==
--- NOTE | ~2024-09-10 | XR_ITS ---
CLINICAL HISTORY: R74.01 - Elevation of levels of liver transaminase levels 2 view chest x-ray Comparison: None Findings: Nonspecific artifact projects over the right apex. No consolidation, pleural effusion or pneumothorax. Mild cardiomegaly without CHF. No acute fracture. IMPRESSION: No acute cardiopulmonary process. This document has been electronically signed by: Rylee Newsome DO on 09/10/2024 14:20:49
[2024-09-10 10:49] LABS: Basophils Absolute Auto 0.1 X10*3/uL (0.0-0.2); Eosinophils Absolute Auto 0.2 X10*3/uL (0.0-0.4); Eosinophils Percent Auto 3.4 % (0-4); Hematocrit 43.3 % (37.0-47.0); Hemoglobin 13.5 g/dl (12.0-16.0); Imm Gran Abs Auto 0.03 X10*3/uL (0.00-0.03); Imm Gran Pct Auto 0.5 % (0.0-0.4); Lymphocytes Absolute Auto 2.3 X10*3/uL (1.2-4.9); Lymphocytes Percent Auto 39.4 % (20-40); MANUAL DIFF FLAG SCAN; Mean Corpuscular HGB Conc 31.2 g/dl (31.0-35.0); Mean Corpuscular Hemoglobin 27.4 pg (27.0-33.0); Mean Corpuscular Volume 87.8 fL (80.0-98.0); Mean Platelet Volume 12.9 fL (9.4-12.3); Monocytes Absolute Auto 0.4 X10*3/uL (0.1-1.2); Monocytes Percent Auto 6.7 % (2-11); Neutrophils Absolute Auto 2.9 x10*3/uL (2.0-8.3); PLT CLUMP 1; Red Blood Count 4.93 X10*6/uL (4.20-5.50); Red Cell Distribution Width 15.6 % (11.0-16.0); SCAN SMEAR FLAG 1
[2024-09-10 11:21] LABS: Platelet Count 131 X10*3/uL (160-400); White Blood Count 5.8 X10*3/uL (4.8-10.8)
[2024-09-10 11:22] LABS: SLIDE REVIEW VERIFIED
[2024-09-10 12:26] LABS: Folate 7.1 ng/mL (> or = 4.0); Vitamin B12 320 pg/mL (200-900)
[2024-09-10 15:12] LABS: Ferritin 71 ng/mL (10-250)
[2024-09-10 15:22] LABS: Anion Gap 12 (12-20)
[2024-09-10 15:27] LABS: Alanine Aminotransferase 81 U/L (0-31); Albumin Level 4.3 g/dL (3.5-5.0); Alkaline Phosphatase 217 U/L (39-117); Aspartate Amino Transferase 58 U/L (5-31); Bilirubin Total 0.3 mg/dL (0.0-1.0); Blood Urea Nitrogen 8 mg/dL (9-16); Carbon Dioxide 24 mmol/L (22-29); Chloride 108 mmol/L (96-108); Cholesterol 113 mg/dL (<200); Estimated Glomerular Filt Rate > 60; Gamma Glutamyl Transpeptidase 653 U/L (7-33); Glucose Random 96 mg/dL (60-115); HDL Cholesterol 48 mg/dL (>40); Iron 75 mcg/dL (30-160); LDL Cholesterol Calculated 46 mg/dL (<100); Lipase 11 U/L (8-78); Percent Iron Saturation 26 % (15-50); Potassium 3.6 mmol/L (3.3-5.1); Sodium 140 mmol/L (135-145); Total Iron Binding Capacity 287 mcg/dL (228-428); Total Protein 7.7 g/dL (6.5-8.0); Triglycerides 97 mg/dL (<150); Unsaturated Iron Binding 212 ug/dL
[2024-09-11 04:49] LABS: HBS Num1 53.45 mIU/mL (0-7.99); HBsAGNum1 0.26 S/CO (0.00-0.99); Hepatitis A Antibody IgM 0.19 Index (0-0.79); Hepatitis B Core Antibody Nonreactive (Nonreactive); Hepatitis B Surface Antigen Negative (Negative); ~HepC Num1 0.25 S/CO (0.00-0.79); ~Hepatitis A Antibody IgM Nonreactive (Nonreactive); ~Hepatitis B Surface Antibody REACTIVE (Nonreactive); ~Hepatitis C Antibody Nonreactive (Nonreactive)
[2024-09-11 05:24] LABS: IgA 290 mg/dL (70-320); IgG 1558 mg/dL (600-1540); IgM 25 mg/dL (50-300)
[2024-09-12 11:04] LABS: Mitochondrial Antibodies NEGATIVE (NEGATIVE)
[2024-09-12 18:59] LABS: Alk.Phos Iso. Macrohepatic 22 % (<=0); Alk.Phos Isoenzymes Bone 23 % (28-66); Alk.Phos Isoenzymes Intest 0 % (1-24); Alk.Phos Isoenzymes Liver 55 % (25-69); Alk.Phos Isoenzymes Placental 0 % (<=0); Alk.Phos Isoenzymes Total 212 U/L (37-153)
[2024-09-13 19:29] LABS: Angiotensin Converting Enzyme 10.9 U/L (9-67)
[2024-09-14 06:53] LABS: Smooth Muscle Antibody <20 U (<20)
[2024-09-15 15:09] LABS: VITAMIN D (1,25 OH) D3 50 pg/mL; Vit D (1,25-Dihydroxy) Total 50 pg/mL (18-72); Vitamin D (1,25 OH) D2 <8 pg/mL
[2024-09-17 00:49] LABS: FIB-ALT 60 U/L (6-29); FIB-Alpha-2-Macroglobulin 143 mg/dL (106-279); FIB-Apolipoprotein A1 183 mg/dL (101-198); FIB-GGT 542 U/L (3-65); FIB-Haptoglobin 348 mg/dL (43-212); FIB-Total Bilirubin 0.3 mg/dL (0.2-1.2); Liver Fibrosis Score 0.13; Liver Fibrosis Stage F0; Nec Inflam Act Grade A1
== END 2024-09-10 09:24 | disposition home or self-care (01) ==
LOC: HO.LAB 09:23
PROVIDERS: PCP Internal Medicine; Visit Provider Nurse Practitioner Family
DX: R74.8 Abnormal levels of other serum enzymes (principal); R74.01 Elevation of levels of liver transaminase levels; Z79.01 Long term (current) use of anticoagulants
CPT/HCPCS: 36415; 71046; 80053; 80061; 81596; 82164; 82607; 82652; 82728; 82746; 82784; 82977; 83540; 83690; 84080; 85025; 85610; 86015; 86381; 86704; 86706; 86709; 86803; 87340

== ENCOUNTER → 2024-09-10 10:16 | Outpatient (BNV) | payer OTHER, SELFPAY | PROVIDERS: PCP Internal Medicine; Visit Provider Radiology Diagnostic Radiology | DX: I51.7 Cardiomegaly (principal) | CPT/HCPCS: 71046 ==

== ENCOUNTER 2024-09-17 08:54 | Outpatient (REF) | payer OTHER, SELFPAY ==
[2024-09-17 09:58] LABS: Baso%MD 0.7 %; Eos%MD 4.5 %; Hematocrit 43.2 % (37.0-47.0); Hemoglobin 13.8 g/dl (12.0-16.0); IG%MD 0.3 %; Lymph%MD 42.2 %; Mean Corpuscular HGB Conc 31.9 g/dl (31.0-35.0); Mean Corpuscular Hemoglobin 27.2 pg (27.0-33.0); Mean Platelet Volume 11.8 fL (9.4-12.3); Mono%MD 8.7 %; Neut%MD 43.6 %; Platelet Count 185 X10*3/uL (160-400); Red Blood Count 5.08 X10*6/uL (4.20-5.50); Red Cell Distribution Width 15.2 % (11.0-16.0); White Blood Count 5.8 X10*3/uL (4.8-10.8)
[2024-09-17 11:09] LABS: Band Neutrophils Percent 0 % (3-5); Eosinophils Absolute Manual 0.2 X10*3/uL (0.0-0.4); Eosinophils Percent Manual 4 % (0-4); Lymphocytes Absolute Manual 2.5 X10*3/uL (1.2-4.9); Lymphocytes Percent Manual 43 % (20-40); Monocytes Absolute Manual 0.2 X10*3/uL (0.1-1.2); Monocytes Percent Manual 4 % (2-11); Neutrophils Absolute Manual 2.8 X10*3/uL (2.0-8.3); Neutrophils Percent Manual 49 % (45-73)
[2024-09-17 11:10] LABS: RBC Morphology NOTED
[2024-09-17 11:11] LABS: Burr Cells 1+ (0-2) /OIF; Platelet Estimate NORMAL (NORMAL); Platelet Morphology Comment NORMAL
[2024-09-19 15:59] LABS: Anti Nuclear Antibody Screen NEGATIVE (NEGATIVE)
== END 2024-09-17 08:55 | disposition home or self-care (01) ==
LOC: HO.LAB 08:54
PROVIDERS: PCP Internal Medicine; Visit Provider Nurse Practitioner Family
DX: R74.01 Elevation of levels of liver transaminase levels (principal); D69.6 Thrombocytopenia, unspecified
CPT/HCPCS: 36415; 85007; 85027; 86038

== ENCOUNTER 2024-09-23 08:53 | Outpatient (REF) | payer OTHER, SELFPAY ==
[2024-09-23 09:55] LABS: C Reactive Protein 0.14 mg/dL (< or = 0.50)
== END 2024-09-23 08:54 | disposition home or self-care (01) ==
LOC: HO.LAB 08:53
PROVIDERS: PCP Internal Medicine; Visit Provider Nurse Practitioner Family
DX: R74.01 Elevation of levels of liver transaminase levels (principal)
CPT/HCPCS: 36415; 86140

== ENCOUNTER 2024-09-25 09:23 | Outpatient (AMB) | payer OTHER, SELFPAY ==
--- NOTE | 2024-09-25 09:35 | A.OFFVIS_ITS ---
Vital Signs 09/25/24 09:36 Height 5 ft 5 in Weight 195 lb BMI 32.4 BP 154/69 H Blood Pressure Location Lt brachial Position Sitting Pulse 82 Pulse Oximetry (%) 97 Oxygen Delivery Method Room Air Intake Visit Reasons: 4w f/u (GERD) Intake Note: Patient follow up for GERD and lab results. Patient denies any GI issues for today visit. Allergies amoxicillin (AMOXICILLIN) Allergy (Severe, Verified 09/25/24 09:35) Anaphylaxis HPI HPI 4w f/u (GERD): Details: Patient is a 63-year-old female with PMH of hypothyroidism, depression, hyperlipidemia, hypertension, diabetes and nicotine dependence. Kyung presents for follow-up on her elevated liver levels, present since 2019. An ultrasound back then indicated fatty liver. Despite intermittent evaluations, recent lab results still show elevated liver enzyme levels. We have ruled out autoimmune conditions, hepatitis, and inflammatory bowel disease (IBD). Kyung reports right upper quadrant abdominal pain, especially upon movement, described as a pulling sensation. Acid reflux remains well controlled with pantoprazole She reports daily BM without difficulty including no constipation, diarrhea or blood in stools. She denies nausea, vomiting, regurgitation, dysphasia, changes in bowel habits, or blood in stool. Her appetite and weight remains stable. [facility] Medical History (Updated 08/27/24 @ 10:39 by Eve Estrada CNP) Transaminitis History of condyloma acuminatum History of verrucae (wart) excision Anal condylomata Elevated LFTs Hypothyroid Depression Smoking Hyperlipidemia, unspecified Essential hypertension Type 2 diabetes mellitus with unspecified complications Surgical History Hx of colonoscopy No pertinent past surgical history Family History Father No problems noted. Mother Stroke Hypertension Diabetes Social History (Updated 09/25/24 @ 13:00 by Eve Estrada CNP) Household Members Other:: Lives alone Are you a primary care management specialist to a significant other at home: No Do you presently have visiting nurse or other home services: No Alcohol intake: former Comment: occasional, socially Patient Tobacco Use Status: Current everyday Tobacco user Tobacco use type: Cigarette Cigarettes Per Day: 7 Years Smoked: 30 Female Reproductive History Menstrual Age of Menarche: 14 Review of Systems Const Reports as per HPI ENT Reports as per HPI Card Reports as per HPI Resp Reports as per HPI GI Reports as per HPI Reports as per HPI Physical Exam Vital Signs: Last Vital Signs Pulse 82 09/25/24 09:36 BP 154/69 H 09/25/24 09:36 Pulse Ox 97 09/25/24 09:36 Oxygen Delivery Method Room Air 09/25/24 09:36 BMI result Body Mass Index 32.4 Const General: healthy appearing, no acute distress and well developed Nutritional Appearance: well nourished Orientation/consciousness: patient oriented x3 HEENT Head: Yes normal to inspection, Yes normocephalic and Yes atraumatic Face and sinus: Yes normal facial exam Eyes General: appearance normal, both eyes and all related structures Neck Neck: Yes normal visual inspection Resp Effort & Inspection: normal respiratory effort, able to speak in complete sentences, no tracheal deviation and symmetric chest movement Auscultation: clear to auscultation bilaterally Cardio Jugular venous distension: no JVD Rate: regular rate Rhythm: regular rhythm Heart sounds: S1 normal heart sound present, S2 normal heart sound present, no gallops and no murmurs GI Inspection: Yes normal to inspection, No distended, Yes obesity and No visible herniation Palpation (GI): Soft to palpation, not firm and nontender Auscultation: normal bowel sounds Neuro General: patient oriented x3 Gait exam (Neuro): Normal gait present Psych Appearance: grossly normal Mental Status: mental status grossly normal Speech and movement: Normal speech and movement present Affect: normal affect Attitude: cooperative Thought process: Normal thought process present Thought content: Normal thought content present Insight: Good insight present (Psych) Judgement: Good judgement present (Psych) Assessment & Plan Assessment & Plan (1) Transaminitis: Code(s): R74.01 - Elevation of levels of liver transaminase levels Category: Medical Plan: Elevated liver enzymes persisting since 2019 with high IgG and IgM; ruled out IBD, hepatitis and low concern for sarcoidosis with normal LINDY levels and unremarkable CXR. Suspected autoimmune hepatitis, potential for primary liver cancer. Additional Tests: Liver biopsy (scheduled for October 13), stool results pending. Medications: Resume Statin at previous dose. Lifestyle Modifications: Smoking cessation advised. (2) Smoking: Code(s): F17.200 - Nicotine dependence, unspecified, uncomplicated Category: Social Hx Plan: Current every day smoker, approx 20 pack year history Contemplation stage of change Additional Tests: Recommend low-dose CT chest via PCP for lung nodule screening (meets criteria due to smoking history). Reinforced smoking cessation Plan follow up after biopsy or sooner as needed Time: I spent a total of 35 minutes on the date of encounter which includes: Preparing to see the patient (reviewed previous documentation, test results and medical history) Performing a medically appropriate exam and/or evaluation Ordering medications, tests, and procedures Documenting clinical information in the health record Coding Level of Care Code Established Pt Est Pt Level 4 (62081) Patient Type Established Diagnoses Transaminitis R74.01 Smoking F17.200
[2024-09-25 09:36] VITALS: BP 154/69; PULSE 82; O2SAT 97; BMI 32.4
== END 2024-09-25 10:11 | disposition home or self-care (01) ==
LOC: HO.HGI 09:24
PROVIDERS: PCP Internal Medicine; Visit Provider Nurse Practitioner Family
DX: R74.01 Elevation of levels of liver transaminase levels (principal); F17.200 Nicotine dependence, unspecified, uncomplicated
CPT/HCPCS: 99214

== ENCOUNTER 2024-09-25 09:37 | Outpatient (REF) | payer OTHER, SELFPAY ==
[2024-10-03 01:09] LABS: Calprotectin, Fecal 310 mcg/g
== END 2024-09-25 09:38 | disposition home or self-care (01) ==
LOC: HO.LNP 09:37
PROVIDERS: Visit Provider Nurse Practitioner Family
DX: R74.01 Elevation of levels of liver transaminase levels (principal); F17.200 Nicotine dependence, unspecified, uncomplicated
CPT/HCPCS: 83993; 99212

== ENCOUNTER 2024-10-13 08:03 | Day surgery (SDC) | payer OTHER, SELFPAY ==
[2024-10-13] VITALS (14 sets, daily range): BP systolic 104–197; BP diastolic 61–83; PULSE 65–97; RESP 14–22; TEMP 36.4–37; O2SAT 95–100; BMI 32.4; BMI 32.6
--- NOTE | ~2024-10-13 | US_ITS ---
Examination: Ultrasound-guided liver core biopsy. CLINICAL INDICATIONS: Elevated LFTs. COMPARISON: Ultrasound abdomen with liver elastography 05/19/2022. FINDINGS: Extending ultrasound guided liver biopsy procedure, benefits and risk, a written consent was obtained. Patient was placed supine in slightly left semi decubitus position and preliminary ultrasound imaging was obtained. An optimal site was selected and marked on the skin. The marked site was cleaned and draped in usual sterile manner. 1% lidocaine was administered puncture site. Through a small skin incision a 20-gauge guide needle was advanced in the right hepatic lobe and 3 pass core biopsy was obtained coaxially. Tissue obtained was sent to lab in alcohol solution. Postprocedure repeat ultrasound imaging was performed and reveal no hemorrhage. Simple Band-Aid dressing was applied postprocedure. Patient tolerated procedure extremely well. Conscious sedation was utilized. 20 minutes and patient monitored by IR nursing and IR physician. Findings/ US/US biopsy liver impression: On preliminary ultrasound imaging there is echogenic liver. No focal lesion seen. Successful ultrasound-guided 3 core biopsy of right hepatic lobe without immediate comp occasions. Electronically signed by: Joby Roth MD 10/24/2024 10:17 AM EDT
[2024-10-13 09:20] LABS: Glucose, Whole Blood 244 mg/dL (60-115)
[2024-10-13 10:27] LABS: INTERNATIONAL NORM RATIO 1.0 (0.9-1.1); Prothrombin Time 11.7 SEC (10.9-12.4)
[2024-10-13] MEDS: Lidocaine HCl 1 % MPF 5 ML VIAL SUBCUT (11:27)
== END 2024-10-13 13:18 | disposition home or self-care (01) ==
LOC: HO.SSS 08:06
PROVIDERS: Radiology Diagnostic Radiology; PCP Internal Medicine; Visit Provider Nurse Practitioner Family
DX: R74.01 Elevation of levels of liver transaminase levels (principal); R74.8 Abnormal levels of other serum enzymes; K75.81 Nonalcoholic steatohepatitis (NASH); K21.9 Gastro-esophageal reflux disease without esophagitis; E03.9 Hypothyroidism, unspecified; E78.5 Hyperlipidemia, unspecified; I10 Essential (primary) hypertension; E11.9 Type 2 diabetes mellitus without complications; F32.A Depression, unspecified; Z79.4 Long term (current) use of insulin; Z79.899 Other long term (current) drug therapy; Z88.1 Allergy status to other antibiotic agents; F17.210 Nicotine dependence, cigarettes, uncomplicated
CPT/HCPCS: 36415; 47000; 76942; 82947; 85610; 88307; 88313; 99152; J2003; J2250; J2312; J3010

== ENCOUNTER → 2024-10-13 10:22 | Outpatient (BNV) | payer OTHER, SELFPAY | PROVIDERS: PCP Internal Medicine; Visit Provider Radiology Diagnostic Radiology | DX: R74.01 Elevation of levels of liver transaminase levels (principal) | CPT/HCPCS: 47000; 76942 ==

== ENCOUNTER 2024-10-23 10:55 | Outpatient (AMB) | payer OTHER, SELFPAY ==
--- NOTE | 2024-10-23 11:03 | A.OFFVIS_ITS ---
Vital Signs 10/23/24 11:05 Height 5 ft 5 in Weight 142 lb BMI 23.6 BP 152/70 H Blood Pressure Location Lt brachial Position Sitting Pulse 80 Pulse Oximetry (%) 96 Oxygen Delivery Method Room Air Intake Visit Reasons: biopsy result Intake Note: Patient follow up for BX results. Patient denies any GI issues for today. Communication Analyst Required: No Accompanied by: Self / Same As Patient Allergies amoxicillin (AMOXICILLIN) Allergy (Severe, Verified 10/23/24 11:02) Anaphylaxis HPI HPI biopsy result: Details: Patient is a 63-year-old female with PMH of hypothyroidism, depression, hyperlipidemia, hypertension, diabetes and nicotine dependence. The patient presents for follow-up regarding recent liver biopsy and abnormal stool test results. The biopsy confirmed severe hepatic steatosis with inflammation, attributed to diabetes, prior hyperlipidemia, and obesity. The patient?s diabetes is under moderate control (last A1c 7.3 in September), and cholesterol is stable on pravastatin. The patient reports regular walking (every other day, ~1 hour/session) and is working on further lifestyle changes, including dietary improvements and smoking cessation. She attempts to avoid processed foods and denies alcohol use. The patient denies current GI symptoms such as abdominal pain, nausea, vomiting, or blood in stool. Bowel movements occur daily, with occasional variation in color but not consistency; patient identifies stool as resembling type 7 on the Follett Stool Chart at times, but generally describes them as formed and not diarrheal. Occasional heartburn is present, managed with pantoprazole. No recent weight loss, fever, or fatigue. Last colonoscopy was several years ago and reportedly normal. . No dayf-roh-ommolor meds or supplements used. [facility] Medical History (Updated 10/23/24 @ 16:49 by Eve Estrada CNP) Fatty liver determined by biopsy Elevated fecal calprotectin Transaminitis History of condyloma acuminatum History of verrucae (wart) excision Anal condylomata Elevated LFTs Hypothyroid Depression Smoking Hyperlipidemia, unspecified Essential hypertension Type 2 diabetes mellitus with unspecified complications Surgical History Hx of colonoscopy No pertinent past surgical history Family History Father No problems noted. Mother Stroke Hypertension Diabetes Social History Household Members Other:: Lives alone Are you a primary healthcare receptionist to a significant other at home: No Do you presently have visiting nurse or other home services: No Alcohol intake: former Comment: occasional, socially Patient Tobacco Use Status: Current everyday Tobacco user Tobacco use type: Cigarette Cigarettes Per Day: 7 Years Smoked: 30 Female Reproductive History Menstrual Age of Menarche: 14 Review of Systems Const Reports as per HPI ENT Reports as per HPI Card Reports as per HPI Resp Reports as per HPI GI Reports as per HPI Reports as per HPI Physical Exam Vital Signs: Last Vital Signs Pulse 80 10/23/24 11:05 BP 152/70 H 10/23/24 11:05 Pulse Ox 96 10/23/24 11:05 Oxygen Delivery Method Room Air 10/23/24 11:05 BMI result Body Mass Index 23.6 Const General: healthy appearing, no acute distress and well developed Nutritional Appearance: well nourished Orientation/consciousness: patient oriented x3 HEENT Head: Yes normal to inspection, Yes normocephalic and Yes atraumatic Face and sinus: Yes normal facial exam Eyes General: appearance normal, both eyes and all related structures Neck Neck: Yes normal visual inspection Resp Effort & Inspection: normal respiratory effort, able to speak in complete sentences, no tracheal deviation and symmetric chest movement Auscultation: clear to auscultation bilaterally Cardio Jugular venous distension: no JVD Rate: regular rate Rhythm: regular rhythm Heart sounds: S1 normal heart sound present, S2 normal heart sound present, no gallops and no murmurs GI Inspection: Yes normal to inspection, No distended, Yes obesity and Yes striae Palpation (GI): Soft to palpation, not firm and nontender Auscultation: normal bowel sounds Neuro General: patient oriented x3 Gait exam (Neuro): Normal gait present Psych Appearance: grossly normal Mental Status: mental status grossly normal Speech and movement: Normal speech and movement present Affect: normal affect Attitude: cooperative Thought process: Normal thought process present Thought content: Normal thought content present Insight: Good insight present (Psych) Judgement: Good judgement present (Psych) Results Reviewed Results Reviewed: Collected: 10/13/24 Location: [facility] Received: 10/13/24 Diagnosis Liver, right hepatic lobe, needle core biopsy: Steatohepatitis with moderate steatosis, grade 2, stage 3 (see comment). COMMENT: The biopsy demonstrates a distorted hepatic architecture due to occasional bridging fibrosis and incomplete nodularity. There is moderate macrovesicular and microvesicular steatosis and prominent ballooning of hepatocytes. Some portal tracts demonstrate mild to moderate chronic inflammation. The lobules demonstrate mild chronic inflammation. There is pericellular fibrosis, perivenular and occasional bridging fibrosis with formation of irregularly-sized incomplete nodules. Results of special stains: A. Trichcrome stain: Supports the above interpretation. B. Reticulin stain: Supports the above interpretation. C. Iron stain: Negative. D. PASD stain: Demonstrates absence of stainable globular material in the cytoplasm of hepatocytes. Assessment & Plan Assessment & Plan (1) Fatty liver determined by biopsy: Comment: Fib-4:2.23 points, Approximate fibrosis stage: Louise 2-3 Code(s): K76.0 - Fatty (change of) liver, not elsewhere classified Category: Medical Plan: Liver biopsy confirmed severe hepatic steatosis with inflammation and bridging fibrosis (see above). Risk factors include DM, prior hyperlipidemia, and obesity. No evidence of malignancy or autoimmune/biliary etiology. Ongoing elevated LFTs since 2019. Additional Tests: Serial LFTs and fibrosis score to monitor hepatic status. Medications: Continue pravastatin; coordinate DM management with PCP. Lifestyle Modifications: Target >=% weight loss (~10 lbs), optimize glycemic control, smoking cessation, maintain regular exercise, reinforce whole foods diet. Follow-Up: Reassess with PCP and GI in 2 months or sooner if symptoms develop. (2) Elevated fecal calprotectin: Code(s): R19.5 - Other fecal abnormalities Category: Medical Plan: Stool test positive for inflammatory markers; variable stool consistency. No current GI symptoms, but further evaluation warranted to rule out IBD and celiac. Additional Tests: Order abdominal/pelvic CT (enterography protocol) to assess for intestinal inflammation; celiac serology; colonoscopy and EGD. Medications: No changes pending further workup. Lifestyle Modifications: Continue current diet; consider police judge referral if dietary concerns arise. Follow-Up: Review imaging and lab results in 2 months; coordinate with endoscopic findings. (3) Acid reflux: Code(s): K21.9 - Gastro-esophageal reflux disease without esophagitis Category: Medical Qualifiers: Esophagitis presence: esophagitis presence not specified Qualified Code(s): K21.9 - Gastro-esophageal reflux disease without esophagitis Plan: Occasional heartburn, managed with pantoprazole. No alarm symptoms reported. Additional Tests: Schedule EGD (to be performed with colonoscopy) for further evaluation due to ongoing symptoms and long-term PPI use. Medications: Continue pantoprazole as prescribed. Encouraged to take pantoprazole as prescribed, taken at least 30-60 minutes before a meal. Education on GERD prevention : -Advised against heavy meals; encouraged small, frequent meals instead of large ones. - Instructed to remain upright for 2?3 hours after eating. - Advised to avoid late-night meals, spicy foods, caffeine, alcohol, known dietary triggers, and tight-fitting clothing. - Emphasis placed on gradual implementation of lifestyle changes to improve adherence and symptom control. Follow-Up: Review EGD findings at next visit; reassess symptoms and need for ongoing PPI therapy (4) Encounter for screening colonoscopy: Code(s): Z12.11 - Encounter for screening for malignant neoplasm of colon Category: Medical Plan: Due for screening colonoscopy. Last completed 5+ years ago by outside facility. Records not available at time of visit. We will review procedure and prep instructions at follow-up (5) Type 2 diabetes mellitus with unspecified complications: Code(s): E11.8 - Type 2 diabetes mellitus with unspecified complications Category: Medical Plan: DMII is a major risk factor for GARRETT; A1c 7.3 in September. Glycemic control is essential for hepatic and overall health. Additional Tests: Continue routine A1c and glucose monitoring with PCP. Medications: Continue current DM regimen; no changes at this time. Lifestyle Modifications: Emphasize glycemic control through diet, exercise, and weight loss. Follow-Up: Coordinate with PCP; reassess at next GI visit. (6) Hyperlipidemia, unspecified: Code(s): E78.5 - Hyperlipidemia, unspecified Category: Medical Qualifiers: Hyperlipidemia type: unspecified Qualified Code(s): E78.5 - Hyperlipidemia, unspecified Plan: History of hyperlipidemia, currently stable on pravastatin. No recent medication changes needed; lipid control important for hepatic and CV health. Additional Tests: Continue routine lipid panel monitoring. Medications: Continue pravastatin; no changes at this time. Lifestyle Modifications: Maintain heart-healthy, whole foods diet; reinforce exercise and weight loss goals. Follow-Up: Monitor with PCP and GI; reassess at next visit. Plan Follow-up in 2 months or sooner as needed Time: I spent a total of 30 minutes on the date of encounter which includes: Preparing to see the patient (reviewed previous documentation, test results and medical history) Performing a medically appropriate exam and/or evaluation Ordering medications, tests, and procedures Documenting clinical information in the health record Orders: Orders Transglutaminase IgA Today E11.8 - Type 2 diabetes mellitus with unspecified complications, E78.5 - Hyperlipidemia, unspecified, K21.9 - Gastro-esophageal reflux disease without esophagitis, R74.01 - Elevation of levels of liver transaminase levels, Z12.11 - Encounter for screening for malignant neoplasm of colon CT enterography Today R19.5 - Other fecal abnormalities Coding Level of Care Code Established Pt Est Pt Level 4 (86058) Patient Type Established Diagnoses Fatty liver determined by biopsy K76.0 Elevated fecal calprotectin R19.5 Gastroesophageal reflux disease, unspecified whether esophagitis present K21.9 Esophagitis presence: esophagitis presence not specified Encounter for screening colonoscopy Z12.11 Type 2 diabetes mellitus with unspecified complications E11.8 Hyperlipidemia, unspecified hyperlipidemia type E78.5 Hyperlipidemia type: unspecified
[2024-10-23 11:05] VITALS: BP 152/70; PULSE 80; O2SAT 96; BMI 23.6
== END 2024-10-23 11:46 | disposition home or self-care (01) ==
LOC: HO.HGI 10:56
PROVIDERS: PCP Internal Medicine; Visit Provider Nurse Practitioner Family
DX: K76.0 Fatty (change of) liver, not elsewhere classified (principal); R19.5 Other fecal abnormalities; K21.9 Gastro-esophageal reflux disease without esophagitis; E11.8 Type 2 diabetes mellitus with unspecified complications; E78.5 Hyperlipidemia, unspecified
CPT/HCPCS: 99214

== ENCOUNTER → 2024-10-23 10:55 | Outpatient (BNVA) | payer OTHER, SELFPAY | PROVIDERS: PCP Internal Medicine; Visit Provider Nurse Practitioner Family | DX: Z12.11 Encounter for screening for malignant neoplasm of colon (principal); K76.0 Fatty (change of) liver, not elsewhere classified; R19.5 Other fecal abnormalities; K21.9 Gastro-esophageal reflux disease without esophagitis; E11.8 Type 2 diabetes mellitus with unspecified complications; E78.5 Hyperlipidemia, unspecified | CPT/HCPCS: 99212 ==

== ENCOUNTER 2024-11-10 08:24 | Outpatient (REF) | payer OTHER, SELFPAY ==
[2024-11-10 09:35] LABS: Hemoglobin A1C 221.4221 umol/L; Total Hemoglobin (HGBA1C) 3866.0370 umol/L
[2024-11-10 09:43] LABS: Alanine Aminotransferase 94 U/L (0-31); Albumin Level 4.5 g/dL (3.5-5.0); Alkaline Phosphatase 233 U/L (39-117); Anion Gap 15 (12-20); Aspartate Amino Transferase 63 U/L (5-31); Blood Urea Nitrogen 9 mg/dL (9-16); Calcium 10.1 mg/dL (8.4-10.2); Carbon Dioxide 24 mmol/L (22-29); Chloride 107 mmol/L (96-108); Estimated Glomerular Filt Rate > 60; Potassium 3.7 mmol/L (3.3-5.1); Sodium 142 mmol/L (135-145); Total Protein 8.1 g/dL (6.5-8.0)
== END 2024-11-10 08:25 | disposition home or self-care (01) ==
LOC: HO.LAB 08:24
PROVIDERS: Absent Provider Internal Medicine; PCP Internal Medicine; Visit Provider Nurse Practitioner Family
DX: Z12.11 Encounter for screening for malignant neoplasm of colon (principal); E11.8 Type 2 diabetes mellitus with unspecified complications; E78.5 Hyperlipidemia, unspecified; E03.9 Hypothyroidism, unspecified; K21.9 Gastro-esophageal reflux disease without esophagitis; R74.01 Elevation of levels of liver transaminase levels; R80.8 Other proteinuria; Z86.19 Personal history of other infectious and parasitic diseases
CPT/HCPCS: 36415; 46600; 80053; 83036; 86364; 99212

== ENCOUNTER 2024-11-10 08:46 | Outpatient (AMB) | payer OTHER, SELFPAY ==
--- NOTE | 2024-11-10 08:48 | A.OFFVIS_ITS ---
Vital Signs 11/10/24 08:53 Height 5 ft 5 in Weight 196 lb BMI 32.6 BP 181/81 H Blood Pressure Location Rt brachial Position Sitting Pulse 77 Intake Visit Reasons: Anal condylomata, 6 month follow up Intake Note: This patient presents for Anal condylomata, 6 month follow up. Patient c/o; no concerns. Reports no changes in medical hx. Non Profit Job Titles Required: No Accompanied by: Self / Same As Patient Allergies amoxicillin (AMOXICILLIN) Allergy (Severe, Verified 11/10/24 08:53) Anaphylaxis Medication List - Last Reconciled 11/10/24 by Charles Crane MD amlodipine 5 mg PO DAILY aripiprazole 10 mg PO BEDTIME aspirin 81 mg PO DAILY insulin aspart U-100 (Novolog U-100 Insulin aspart) 20 units subcut TID insulin glargine (Lantus U-100 Insulin) 55 units subcut QPM levothyroxine 112 mcg PO DAILY lisinopril-hydrochlorothiazide 20-25 mg 1 tab PO DAILY metformin 1,000 mg PO BID metoprolol succinate ER 100 mg PO DAILY pantoprazole 40 mg PO DAILY pravastatin 20 mg PO DAILY HPI HPI Anal condylomata, 6 month follow up: Details: She is here for follow-up for history of excision of large anal condylomata in 2022. She says she continues to do well. I last saw her in the office about 6 months ago. She denies any problems with the anus. She denies any bleeding or pain. She says she seems to be in good health. [facility] Medical History Fatty liver determined by biopsy Elevated fecal calprotectin Transaminitis History of condyloma acuminatum History of verrucae (wart) excision Anal condylomata Elevated LFTs Hypothyroid Depression Smoking Hyperlipidemia, unspecified Essential hypertension Type 2 diabetes mellitus with unspecified complications Surgical History Hx of colonoscopy No pertinent past surgical history Family History Father No problems noted. Mother Stroke Hypertension Diabetes Social History Household Members Other:: Lives alone Are you a primary disabilities caregiver to a significant other at home: No Do you presently have visiting nurse or other home services: No Alcohol intake: former Comment: occasional, socially Patient Tobacco Use Status: Current everyday Tobacco user Tobacco use type: Cigarette Cigarettes Per Day: 7 Years Smoked: 30 Female Reproductive History Menstrual Age of Menarche: 14 Review of Systems Const Denies chills and Denies fever(s) Card Denies chest pain Resp Denies cough GI Denies abdominal pain Denies hematuria Physical Exam Vital Signs: Last Vital Signs Pulse 77 11/10/24 08:53 BP 181/81 H 11/10/24 08:53 BMI result Body Mass Index 32.6 Const General: comfortable and no acute distress Resp Effort & Inspection: normal respiratory effort Cardio Rate: regular rate GI Other: Rectal exam shows external hemorrhoids without any obvious current condylomatous lesions Office Procedures Anoscopy She was in kneeling whitney-knife position. The anoscope was gently inserted. A full examination of the entire anal canal was done. There were some small internal external hemorrhoidal columns. However, there were no lesions seen. There was no fissure or ulceration. There was no induration. There was no bleeding.There was no tenderness. [id number] Assessment & Plan Assessment & Plan (1) History of condyloma acuminatum: Code(s): Z86.19 - Personal history of other infectious and parasitic diseases Category: Medical Plan: She continues to do well after excision of extensive perianal condyloma in 2022. Preop exam including anoscopy does not suggest any recurrent disease I will therefore schedule her for another follow up in about 1 year. I did tell her that if she notices any changes with regards to her anus including recurrent lesion, she should come back to the office earlier than that. Coding Level of Care Code Est Pt Level 3 (30899) Diagnoses History of condyloma acuminatum Z86.19 CPT Codes Details - CPT: 70957-Hoherhar ([id number])
[2024-11-10 08:53] VITALS: BP 181/81; PULSE 77; BMI 32.6
== END 2024-11-10 09:23 | disposition home or self-care (01) ==
LOC: HO.HGS 08:47
PROVIDERS: PCP Internal Medicine; Visit Provider Surgery
DX: K64.8 Other hemorrhoids (principal); Z86.19 Personal history of other infectious and parasitic diseases
CPT/HCPCS: 46600; 99213

== ENCOUNTER 2025-01-01 12:55 | Outpatient (REF) | payer OTHER, SELFPAY ==
--- NOTE | ~2025-01-01 | CT_ITS ---
EXAMINATION: CT ENTEROGRAPHY ABDOMEN AND PELVIS WITH CONTRAST CLINICAL INFORMATION: R19.5 - Other fecal abnormalities, r/o inflammatory process COMPARISON: None available. TECHNIQUE: Study performed with oral VoLumen (1350 mL) and 480 mL of water to distend the abdomen. The patient was injected with 85 mL Omnipaque 350 intravenous contrast which was administered without adverse effect. Coronal and sagittal reformatted images were obtained at the technologist's workstation. This CT examination was performed using dose optimization techniques as appropriate, variously including the following: *Automated exposure control *Adjustment of mA and/or kV according to patient size (this includes techniques or standardized protocols for targeted exams where dose is matched to indication/reason for exam; i.e. extremities or head) *Use of iterative reconstruction technique FINDINGS: GASTROINTESTINAL FINDINGS: Stomach: There is a 12 mm focal area of hyperenhancement in the gastric antrum (axial CT #3 image 91/[address] #7 image 23/90). Small intestine: Incompletely distended and unremarkable in appearance. The terminal ileum appears to be within normal limits. Large intestine: Partially distended and unremarkable in appearance. The appendix is normal. No perirectal changes demonstrated. Additional findings: No abnormal enhancement of the vasa recta or significant mesenteric or retroperitoneal lymphadenopathy. ABDOMINAL AND PELVIC CT FINDINGS: Liver, gallbladder, biliary tract: There is mildly decreased attenuation of the liver . A few small high density stones layering the gallbladder. Pancreas: Unremarkable Spleen: Unremarkable Adrenal glands and kidneys: There is 6 mm right adrenal gland nodule There is a 9 x 18 mm left adrenal gland nodule. Kidneys, Ureters and bladder: There is a small simple renal cyst in the anterior lateral mid left kidney. There is a 7 mm hypoattenuating area in the mid right kidney that is too small to characterize, but probably a simple renal cyst. There is no hydronephrosis or hydroureter. The bladder wall is unremarkable. Lymphovascular structures: Minimal atherosclerotic calcification distal aorta and common iliac arteries.. There is no adenopathy. Abdominal wall: There is a small fat-containing umbilical hernia. Pelvis: Uterus is enlarged and lobular with multifocal areas of calcification consistent with fibroid uterus. Ovaries are unremarkable. There is no free fluid. Bones: Small anterior osteophytes are present throughout the lumbar spine. L1-2 demonstrates mild disc space narrowing. Lung bases: Clear CT/CT enterography IMPRESSION: Possible 12 mm polyp or other mass projecting into the lumen of the gastric antrum. Consider EGD. Unremarkable study otherwise other with incomplete distention of small bowel. This examination is not a replacement for colonoscopy cancer screening. 6 mm indeterminate right adrenal nodule and 9 x 18 mm indeterminate left adrenal gland nodule. Recommend 1-year followup adrenal protocol CT. Also, if clinically indicated, consider concurrent laboratory evaluation for possible pheochromocytoma. Fibroid uterus. Cholelithiasis. Mild hepatic steatosis. Electronically signed by: Domingo Ramos MD 01/01/2025 03:08 PM EDT
[2025-01-01] MEDS: iohexoL 350 MG/ML 100 ML INFUS..BTL IV (14:44)
[2025-01-01] MEDS: Sorbitol/Mannit/Xanth Imaging 500 ML LIQUID 1500 ML PO (14:44)
[2025-01-01 15:39] LABS: Creatinine POC 1.1 mg/dL (0.5-1.4); GFR POC > 60
== END 2025-01-01 12:56 | disposition home or self-care (01) ==
LOC: HO.CT 12:55
PROVIDERS: PCP Internal Medicine; Visit Provider Nurse Practitioner Family
DX: R19.5 Other fecal abnormalities (principal)
CPT/HCPCS: 74177; 82565; Q9967

== ENCOUNTER → 2025-01-01 12:56 | Outpatient (BNV) | payer OTHER, SELFPAY | PROVIDERS: PCP Internal Medicine; Visit Provider Radiology Diagnostic Radiology | DX: D44.11 Neoplasm of uncertain behavior of right adrenal gland (principal); K80.20 Calculus of gallbladder without cholecystitis without obstruction; D25.9 Leiomyoma of uterus, unspecified | CPT/HCPCS: 74177 ==

== ENCOUNTER 2025-02-04 08:56 | Outpatient (REF) | payer OTHER, SELFPAY | END 2025-02-04 08:57 | disposition home or self-care (01) | LOC: HO.MAMMO 08:56 | PROVIDERS: PCP Internal Medicine; Visit Provider Internal Medicine | DX: Z12.31 Encounter for screening mammogram for malignant neoplasm of breast (principal) | CPT/HCPCS: 77063; 77067 ==

== ENCOUNTER → 2025-02-04 09:00 | Outpatient (BNV) | payer OTHER, SELFPAY | PROVIDERS: PCP Internal Medicine; Visit Provider Internal Medicine | DX: Z12.31 Encounter for screening mammogram for malignant neoplasm of breast (principal) | CPT/HCPCS: 77063; 77067 ==

== ENCOUNTER 2025-03-19 15:20 | Outpatient (AMB) | payer OTHER, SELFPAY ==
--- NOTE | 2025-03-19 15:21 | A.OFFVIS_ITS ---
Intake Visit Reasons: follow up Intake Note: Patient telehealth follow up to discuss Colonoscopy Patient denies any GI issues for today [employer] Required: No Allergies amoxicillin (AMOXICILLIN) Allergy (Severe, Verified 03/19/25 15:20) Anaphylaxis [facility] HPI follow up: Details: Patient is a 63-year-old female with PMH of hypothyroidism, depression, hyperlipidemia, hypertension, diabetes and nicotine dependence. Telephonic follow-up regarding her missed colonoscopy and upper endoscopy. The procedures were initially recommended following a visit in October, where a CT scan was ordered to evaluate for colonic inflammation. The CT scan did not show signs of inflammation in the colon, but did reveal a polyp in the upper GI tract, prompting the recommendation for an upper endoscopy. The colonoscopy is indicated for definitive evaluation of the colon. Additionally, the CT scan showed a nodule on her adrenal gland, with a recommendation for a repeat scan in one year. The patient was unable to complete the procedures as scheduled due to financial issues with the prescribed bowel preparation, which was not covered by her insurance. Her medical history is notable for diabetes, for which she takes Jardiance. [facility] Medical History (Updated 03/19/25 @ 16:45 by Eve Estrada CNP) Adrenal nodule Gastric polyp Fatty liver determined by biopsy Elevated fecal calprotectin Transaminitis History of condyloma acuminatum History of verrucae (wart) excision Anal condylomata Elevated LFTs Hypothyroid Depression Smoking Hyperlipidemia, unspecified Essential hypertension Type 2 diabetes mellitus with unspecified complications Surgical History Hx of colonoscopy No pertinent past surgical history Family History Father No problems noted. Mother Stroke Hypertension Diabetes Social History Household Members Other:: Lives alone Are you a primary lawn care technician to a significant other at home: No Do you presently have visiting nurse or other home services: No Alcohol intake: former Comment: occasional, socially Patient Tobacco Use Status: Current everyday Tobacco user Tobacco use type: Cigarette Cigarettes Per Day: 7 Years Smoked: 30 Female Reproductive History Menstrual Age of Menarche: 14 Review of Systems Const Reports as per HPI ENT Reports as per HPI Card Reports as per HPI Resp Reports as per HPI GI Reports as per HPI Reports as per HPI Physical Exam Const General: cooperative and no acute distress Orientation/consciousness: patient oriented x3 Resp Other: Normal breath sounds/voice sounds by phone, breathing effortless, no wheezing noted. Patient spoke in full sentences without dif Neuro General: patient oriented x3 Psych Appearance: grossly normal Mental Status: mental status grossly normal Speech and movement: Normal speech and movement present Affect: normal affect Attitude: cooperative Thought process: Normal thought process present Thought content: Normal thought content present Insight: Good insight present (Psych) Judgement: Good judgement present (Psych) Results Reviewed Results Reviewed: Date of Service: 01/01/25 Procedure(s): CT enterography Accession Number(s): [id number] cc: LOGAN RANGEL; Eve Estrada [facility]~ Report Number: [id number]: Total DLP = 448.00 mGy-cm Reason for Exam: R19.5 - Other fecal abnormalities EXAMINATION: CT ENTEROGRAPHY ABDOMEN AND PELVIS WITH CONTRAST CLINICAL INFORMATION: R19.5 - Other fecal abnormalities, r/o inflammatory process COMPARISON: None available. TECHNIQUE: Study performed with oral VoLumen (1350 mL) and 480 mL of water to distend the abdomen. The patient was injected with 85 mL Omnipaque 350 intravenous contrast which was administered without adverse effect. Coronal and sagittal reformatted images were obtained at the technologist's workstation. This CT examination was performed using dose optimization techniques as appropriate, variously including the following: *Automated exposure control *Adjustment of mA and/or kV according to patient size (this includes techniques or standardized protocols for targeted exams where dose is matched to indication/reason for exam; i.e. extremities or head) *Use of iterative reconstruction technique FINDINGS: GASTROINTESTINAL FINDINGS: Stomach: There is a 12 mm focal area of hyperenhancement in the gastric antrum (axial CT #3 image 91/[address] #7 image 23/90). Small intestine: Incompletely distended and unremarkable in appearance. The terminal ileum appears to be within normal limits. Large intestine: Partially distended and unremarkable in appearance. The appendix is normal. No perirectal changes demonstrated. Additional findings: No abnormal enhancement of the vasa recta or significant mesenteric or retroperitoneal lymphadenopathy. ABDOMINAL AND PELVIC CT FINDINGS: Liver, gallbladder, biliary tract: There is mildly decreased attenuation of the liver . A few small high density stones layering the gallbladder. Pancreas: Unremarkable Spleen: Unremarkable Adrenal glands and kidneys: There is 6 mm right adrenal gland nodule There is a 9 x 18 mm left adrenal gland nodule. Kidneys, Ureters and bladder: There is a small simple renal cyst in the anterior lateral mid left kidney. There is a 7 mm hypoattenuating area in the mid right kidney that is too small to characterize, but probably a simple renal cyst. There is no hydronephrosis or hydroureter. The bladder wall is unremarkable. Lymphovascular structures: Minimal atherosclerotic calcification distal aorta and common iliac arteries.. There is no adenopathy. Abdominal wall: There is a small fat-containing umbilical hernia. Pelvis: Uterus is enlarged and lobular with multifocal areas of calcification consistent with fibroid uterus. Ovaries are unremarkable. There is no free fluid. Bones: Small anterior osteophytes are present throughout the lumbar spine. L1-2 demonstrates mild disc space narrowing. Lung bases: Clear CT/CT enterography IMPRESSION: Possible 12 mm polyp or other mass projecting into the lumen of the gastric antrum. Consider EGD. Unremarkable study otherwise other with incomplete distention of small bowel. This examination is not a replacement for colonoscopy cancer screening. 6 mm indeterminate right adrenal nodule and 9 x 18 mm indeterminate left adrenal gland nodule. Recommend 1-year followup adrenal protocol CT. Also, if clinically indicated, consider concurrent laboratory evaluation for possible pheochromocytoma. Fibroid uterus. Cholelithiasis. Mild hepatic steatosis. Electronically signed by: Domingo Ramos MD 01/01/2025 03:08 PM EDT RP Assessment & Plan Assessment & Plan (1) Encounter for screening colonoscopy: Code(s): Z12.11 - Encounter for screening for malignant neoplasm of colon Category: Medical Plan: The office team will contact the patient to reschedule the colonoscopy. - Prescribed GoLytely (4-liter solution) for bowel preparation, as it is expected to be covered by insurance. - Reviewed preparation instructions: take four laxative tablets at 12 PM, drink half the solution at 5 PM, and the remaining half at 10 PM. - Instructed the patient on a clear liquid diet for the prep, avoiding red, blue, or purple colored items; Crystal light is an acceptable mixers. Can also consume orange Jell-O, and Gatorade. - A new instruction packet will be mailed to the patient. - An in-office follow-up appointment will be scheduled for after the procedure is completed. (2) Gastric polyp: Code(s): K31.7 - Polyp of stomach and duodenum Category: Medical Plan: Plan to reschedule the upper endoscopy, to be performed with the colonoscopy, for further evaluation of the upper GI polyp found on CT scan. - A post-procedure follow-up appointment will be scheduled. (3) Adrenal nodule: Code(s): E27.9 - Disorder of adrenal gland, unspecified Category: Medical Plan: Acknowledged the incidental CT finding of an adrenal nodule. - Per the radiology report recommendation, follow-up imaging should be repeated in one year. - The patient's primary care provider is aware of this finding and can coordinate the follow-up. Plan Follow-up endoscopy or sooner as needed Time: I spent a total of 20 minutes on the date of encounter which includes: Preparing to see the patient (reviewed previous documentation, test results and medical history) Performing a medically appropriate exam and/or evaluation Ordering medications, tests, and procedures Documenting clinical information in the health record Medications: New peg 3350-electrolytes 236-22.74-6.74 -5.86 gram until fecal effluent is clear 240 mL PO ONCE 4,000 mL 0RF Discontinued polyethylene glycol 3350 (Miralax) THE DAY BEFORE your procedure mix entire bottle with 64 ounces of Gatorade- no red, blue or purple. AT 5PM Start drinking 1 cup every 15minutes until half is gone. Continue drinking plenty of clear liquids. AT 10PM Finish drinking remaining prep. Discontinued Reason: No Longer Medically Relevant 238 grams PO ONCE 238 grams 0RF 1 day Coding Level of Care Code Established Pt Est Pt Level 3 (35992) Patient Type Established Diagnoses Encounter for screening colonoscopy Z12.11 Gastric polyp K31.7 Adrenal nodule E27.9
== END 2025-03-19 16:46 | disposition home or self-care (01) ==
LOC: HO.HGI 15:20
PROVIDERS: PCP Internal Medicine; Visit Provider Nurse Practitioner Family
DX: K31.7 Polyp of stomach and duodenum (principal); E27.9 Disorder of adrenal gland, unspecified
CPT/HCPCS: 99213

== ENCOUNTER → 2025-03-19 15:20 | Outpatient (BNVA) | payer OTHER, SELFPAY | PROVIDERS: PCP Internal Medicine; Visit Provider Nurse Practitioner Family | DX: Z12.11 Encounter for screening for malignant neoplasm of colon (principal); K31.7 Polyp of stomach and duodenum; E27.9 Disorder of adrenal gland, unspecified | CPT/HCPCS: 99212 ==

== ENCOUNTER 2025-03-31 08:22 | Outpatient (REF) | payer OTHER, SELFPAY ==
[2025-03-31 09:48] LABS: Alanine Aminotransferase 79 U/L (0-31); Albumin Level 4.6 g/dL (3.5-5.0); Alkaline Phosphatase 208 U/L (39-117); Anion Gap 14 (12-20); Aspartate Amino Transferase 51 U/L (5-31); Blood Urea Nitrogen 12 mg/dL (9-16); Calcium 10.5 mg/dL (8.4-10.2); Carbon Dioxide 26 mmol/L (22-29); Chloride 107 mmol/L (96-108); Cholesterol 106 mg/dL (<200); Estimated Glomerular Filt Rate > 60; HDL Cholesterol 43 mg/dL (>40); Potassium 4.1 mmol/L (3.3-5.1); Sodium 143 mmol/L (135-145); Total Protein 8.3 g/dL (6.5-8.0); Triglycerides 103 mg/dL (<150)
[2025-03-31 10:05] LABS: Thyroid Stimulating Hormone 0.51 uIU/mL (0.32-4.0)
[2025-03-31 10:38] LABS: Microalbum/Creatinine Ratio Ur 332.1 ug/mg cr (<30)
== END 2025-03-31 08:23 | disposition home or self-care (01) ==
LOC: HO.LAB 08:22
PROVIDERS: PCP Internal Medicine; Visit Provider Internal Medicine
DX: E11.9 Type 2 diabetes mellitus without complications (principal); E03.9 Hypothyroidism, unspecified; R74.01 Elevation of levels of liver transaminase levels; R80.8 Other proteinuria
CPT/HCPCS: 36415; 80053; 80061; 82043; 82570; 83036; 84443